=== PATIENT | male | born 1955 | race Caucasian/White ===

== ENCOUNTER → 2016-02-26 | Outpatient (CLI) | payer BC ==
--- NOTE | 2016-02-26 21:45 | EEG ---
DATE OF SERVICE: 02/26/2016 INDICATIONS FOR EXAMINATION: Transient ischemic attack. AGE: 60Y DESCRIPTION OF PROCEDURE: This EEG was performed using a 21 channel digital electroencephalograph following international 10-20 system. DESCRIPTION OF THE RECORDING: From the beginning of the tracing, with the patient's eyes closed, the background rhythm was mostly consisting of 9 Hz alpha frequency in the posterior occipital leads. No obvious asymmetry is seen. Occasional movement artifacts are noticed. Photic stimulation was performed with a good driving response seen. No pathological waves were elicited. Hyperventilation was not performed. The patient remains awake throughout the tracing. No epileptiform discharges were seen. His EKG lead showed an irregularly irregular rhythm with a normal rate. INTERPRETATION: This awake EEG can be considered within normal limits except his EKG lead showed an irregularly irregular rhythm with a normal rate. No epileptiform discharges were seen. The absence of epileptiform discharges does not rule out the diagnosis of epilepsy, therefore, clinical correlation is recommended. Thank you Dr. Lott for allowing me to participate in the care of your patient. If you have any questions, please feel free to contact me.
== END | disposition home or self-care (01) ==
LOC: NEUROMAIN 10:42
PROVIDERS: ATTEND Family Medicine
DX: G45.9 Transient cerebral ischemic attack, unspecified (principal)
CPT/HCPCS: 95816

== ENCOUNTER → 2016-02-29 | Outpatient (CLI) | payer BC ==
--- NOTE | 2016-02-29 10:16 | CT ---
EXAMINATION TYPE: CT chest w con DATE OF EXAM: 02/29/2016 10:06 AM COMPARISON: Previous study dated 12/04/2015 HISTORY: Follow up to lung nodule CT DLP: 443.5 mGycm Automated exposure control for dose reduction was used. CONTRAST: CT scan of the chest is performed with IV Contrast, patient injected with 100 ml mL of Omnipaque 300. FINDINGS: The patient is groundglass nodule in the right upper lobe has resolved. The lungs are now clear. There is no significant axillary, mediastinal or hilar adenopathy. There is no pleural or pericardial fluid. Within the abdomen, there is mild fatty infiltration of the liver. Visualized portions of the upper a bdomen are otherwise normal. There is evidence of fresh is disease within the dorsal spine. IMPRESSION: 1. Resolution of the patient ground glass nodule right upper lobe. 2. Mild fatty infiltration of the liver 3. DISH.
== END | disposition home or self-care (01) ==
LOC: RADCTMAIN 09:25
PROVIDERS: ATTEND Family Medicine
DX: R91.1 Solitary pulmonary nodule (principal)
CPT/HCPCS: 71260; Q9967

== ENCOUNTER → 2016-03-12 | Outpatient (CLI) | payer BC ==
[2016-03-12 17:07] LABS: Blood Urea Nitrogen 18 mg/dL (9-20); Non-African American GFR(MDRD) >60 (>60 ml/min/1.73 sqM)
--- NOTE | 2016-03-13 08:43 | MR ---
MRI of the brain with and without contrast HISTORY: Headaches. TECHNIQUE: T1-weighted sagittal, T2, FLAIR, and diffusion axial, postcontrast T1 axial and coronal vi ews of the brain are submitted. CONTRAST: 20 mL MultiHance FINDINGS: There is no evidence of acute ischemia. The ventricles, basal cisterns, and sulci overlying the co nvexities are consistent with the patient's age. There is no mass effect or enhancing mass. Changes of chronic sinusitis noted. No cerebellopontine angle mass. Intraorbital structures have a no rmal appearance. Craniocervical junction maintained. Sella turcica has a normal appearance there is a dural based calc ification along the anterior interhemispheric fissure. There is normal enhancement of the vasculature including the dural venous sinuses. WHITE MATTER: There are approximately 30 focal areas of abnormal signal within the white matter which are not cysti c. There are no callosal lesions. There are no lesions perpendicular to the ventricular system. IMPRESSION: 1. No acute intracranial process. 2. Chronic sinusitis. 3. Nonspecific white matter changes. Most likely etiology is remote microvascular ischemia. Correlate clinically.
== END | disposition home or self-care (01) ==
LOC: RADMRIMAIN 16:23
PROVIDERS: ATTEND Nurse Practitioner Family
DX: R90.82 White matter disease, unspecified (principal)
CPT/HCPCS: 82565; 84520; 70553; A9577

== ENCOUNTER 2018-11-17 08:40 | Day surgery (SDC) | payer BC ==
[2018-11-15 12:02] VITALS: BMI 31.3
[~2018-11-17 08:40] MED LIST: LACTATED RINGERS 1,000 ML IV SCH; LIDOCAINE 1% 20 ML VIAL (10MG/ML) FOR IV START INTRADERMA PRN
[2018-11-17 08:59] VITALS: RESP 16; TEMP 97.2
[2018-11-17] MEDS ORDERED: PROPOFOL 10 MG/ML 20 ML VIAL IV ONE (09:03)
--- NOTE | 2018-11-17 09:22 | P.PCN ---
Date of Procedure: 11/17/18 Procedure(s) Performed: BRIEF HISTORY: Patient is a 63-year-old white male scheduled for an elective colonoscopy as a part of screening for colorectal neoplasia. Last colonoscopy was 10 years ago. PROCEDURE PERFORMED: Colonoscopy with snare polypectomy. PREOPERATIVE DIAGNOSIS: Screening for colon cancer. IV sedation per Anesthesia. PROCEDURE: After informed consent was obtained, the patient, was brought into the endoscopy unit. IV sedation was administered by Anesthesia under continuous monitoring. Digital rectal examination was normal. Initially the Olympus CF-160 flexible video colonoscope was then inserted in the rectum, gradually advanced into the cecum without any difficulty. Careful examination was performed as the scope was gradually being withdrawn. Ileocecal valve and the appendiceal orifice were visualized and appeared normal. Prep was excellent. Mucosa of the cecum, ascending colon, transverse colon, descending colon, appeared normal. In the sigmoid: There was a 5 mm polyp that was removed by snare polypectomy. sigmoid colon, and rectum appeared normal. Retroflexion was performed in the rectum and no lesions were seen. The patient tolerated the procedure well. IMPRESSION: 5 mm; sigmoid colon polyp status post polypectomy Rest of the colon appeared normal RECOMMENDATIONS: Findings of this examination were discussed with the patient as well as a family. He was advised to follow with the biopsy results. If the biopsy shows an adenoma he can have a repeat colonoscopy in 5 years..
[2018-11-17 09:55] VITALS: BP 132/72; PULSE 66
== END 2018-11-17 09:55 | disposition home or self-care (01) ==
LOC: ORWHC2ENDO 08:40
PROVIDERS: ATTEND Internal Medicine Gastroenterology
DX: Z12.11 Encounter for screening for malignant neoplasm of colon (principal); D12.5 Benign neoplasm of sigmoid colon; I48.91 Unspecified atrial fibrillation; I10 Essential (primary) hypertension; E78.5 Hyperlipidemia, unspecified; G47.33 Obstructive sleep apnea (adult) (pediatric); Z99.89 Dependence on other enabling machines and devices; Z79.01 Long term (current) use of anticoagulants; Z79.899 Other long term (current) drug therapy
CPT/HCPCS: 88305; 45385; J2704

== ENCOUNTER 2019-02-28 09:51 | Inpatient (IN) | payer BC ==
[2019-02-28] MEDS ORDERED: MAGNESIUM SULFATE-D5W PMX 1 GM in DEXTROSE/WATER 1 100ML.BAG IVPB SCH (11:30)
[2019-02-28 12:44] LABS: African American GFR (CKD) >90 (>60 ml/min/1.73 sqM); Anion Gap 7 mmol/L; Blood Urea Nitrogen 14 mg/dL (9-20); Carbon Dioxide 29 mmol/L (22-30); Chloride 106 mmol/L (98-107); Glucose 97 mg/dL (74-99); Magnesium 2.3 mg/dL (1.6-2.3); Non-African American GFR(CKD) >90 (>60 ml/min/1.73 sqM); Potassium 3.4 mmol/L (3.5-5.1); Sodium 142 mmol/L (137-145)
[2019-02-28] MEDS: MAGNESIUM SULFATE-D5W PMX 1 GM in DEXTROSE/WATER 1 100ML.BAG IVPB SCH (14:22)
[2019-02-28] MEDS ORDERED: SPIRONOLACTONE 25 MG TAB PO SCH (14:30)
[2019-02-28] MEDS: MAGNESIUM OXIDE 400 MG TAB PO SCH (15:26)
[2019-02-28] MEDS: SPIRONOLACTONE 25 MG TAB PO SCH (15:26)
--- NOTE | 2019-02-28 16:29 | P.PN ---
Subjective This is Concepción Valdez PA-C dictating a progress note on this patient The patient was interviewed and examined by me as well as by Dr. Durbin Case discussed with Dr. Durbin and he agrees with the plan of care IMPRESSION / ASSESSMENT: Persistent atrial fibrillation with controlled ventricular response, status post PVI and linear ablation, failed flecainide History of sick sinus syndrome History of CAD, recent stress test showing no evidence of reversible ischemia Recent echocardiogram and stress test showing dilated LV and low normal LV systolic function Dyslipidemia Hypertension Normal TSH PLAN: Initiate treatment with dofetilide 250 g tonight at 6:00, follow-up EKG 3 hours later to reassess QT interval Start spironolactone 50 mg daily Start magnesium 400 mg daily Continue anticoagulation with eliquis 5 mg twice daily Continue amlodipine Continue lisinopril 40 mg daily Continue atorvastatin Monitor BMP and mag daily, goal is to maintain mag > 2 Monitor telemetry for PVCs and ventricular arrhythmias Monitor EKG and assess for QT prolongation HPI/interval history Patient is a 63-year-old male with a past medical history of persistent atrial fibrillation status post atrial fibrillation ablation, sick sinus syndrome, hy pertension, CAD and dyslipidemia presented for management of atrial fibrillation. A recent echocardiogram showed low normal LV systolic function with mildly dilated LV. His recent stress test again redemonstrated dilated LV, without reversible ischemia. Recent Holter monitor showed rate controlled atrial fibrillation. Patient denied any symptoms, denies fatigue, palpitations, shortness of breath or chest discomfort. In view of his declining LV function and dilated LV, treatment of his atrial fibrillation to avoid worsening cardiomyopathy was recommended. Patient was brought in for initiation of dofetilide. Patient seen and examined resting in bed. States he recently hurt his knee otherwise denies any complaints. No palpitations, dizziness, syncope. Endorses good energy level. Denies chest pain or shortness of breath. EXAMINATION Patient is afebrile, pulse 59, respirations 16, blood pressure 146/75, oxygen saturation 95% on room air Patient seen and examined resting in bed, in no acute distress Lungs clear to auscultation bilaterally, no rhonchi wheezing or crackles Heart is irregularly irregular, no audible murmurs No elevated JVD No lower extremity edema REVIEW OF LABS, ECG Labs reviewed, potassium 3.4, BUN 14, creatinine 0.78, magnesium 2.3, TSH 1.06 EKG today shows atrial fibrillation, absolute QT 420 ms Objective - Vital Signs Vital signs: Vital Signs Temp 97.9 F 02/28/19 12:29 Pulse 59 L 02/28/19 12:29 Resp 16 02/28/19 12:29 BP 146/75 02/28/19 12:29 Pulse Ox 95 02/28/19 12:29 Intake & Output 02/27/19 02/28/19 02/28/19 18:59 06:59 18:59 Intake Total 600 Balance 600 Weight 98.066 kg Intake: Oral 600 Other: # Voids 1 - Labs CBC & Chem 7: 02/28/19 11:30 Labs: Abnormal Lab Results - Last 24 Hours (Table) 02/28/19 Range/Units 11:30 Potassium 3.4 L (3.5-5.1) mmol/L
[2019-02-28] MEDS ORDERED: DOFETILIDE 250 MCG CAP PO ONE (18:00)
[2019-02-28] MEDS: APIXABAN 5 MG TAB PO SCH (20:37)
[2019-02-28] MEDS: ATORVASTATIN 10 MG TAB PO SCH (20:37)
[2019-03-01] MEDS ORDERED: DOFETILIDE 250 MCG CAP PO ONE (06:00)
[2019-03-01 06:07] LABS: African American GFR (CKD) >90 (>60 ml/min/1.73 sqM); Anion Gap 7 mmol/L; Blood Urea Nitrogen 15 mg/dL (9-20); Calcium 8.6 mg/dL (8.4-10.2); Carbon Dioxide 28 mmol/L (22-30); Chloride 106 mmol/L (98-107); Glucose 106 mg/dL (74-99); Magnesium 2.3 mg/dL (1.6-2.3); Non-African American GFR(CKD) >90 (>60 ml/min/1.73 sqM); Potassium 3.6 mmol/L (3.5-5.1); Sodium 141 mmol/L (137-145)
[2019-03-01] MEDS ORDERED: LIDOCAINE 1% 20 ML VIAL (10MG/ML) FOR IV START INTRADERMA PRN (07:55)
[2019-03-01] MEDS ORDERED: MORPHINE SULFATE 4 MG/ML SYRINGE IV PRN (07:55)
[2019-03-01] MEDS ORDERED: DEXAMETHASONE SOD PHOSPHATE 10 MG/ML 1 ML VIAL IV ONE ×2 (07:55→09:15)
[2019-03-01] MEDS: LISINOPRIL 20 MG TAB PO SCH (08:52)
[2019-03-01] MEDS: SPIRONOLACTONE 25 MG TAB PO SCH (08:52)
[2019-03-01] MEDS: amLODIPine 10 MG TAB PO SCH (08:53)
[2019-03-01] MEDS: APIXABAN 5 MG TAB PO SCH ×2 (08:53→19:41)
[2019-03-01] MEDS: MAGNESIUM OXIDE 400 MG TAB PO SCH (08:53)
[2019-03-01] MEDS ORDERED: AMLODIPINE BESYLATE PO SCH (09:00)
[2019-03-01] MEDS ORDERED: BENAZEPRIL PO SCH (09:00)
--- NOTE | 2019-03-01 17:23 | P.PN ---
Subjective This is Concepción Valdez PA-C dictating a progress note on this patient The patient was interviewed and examined by me as well as by Dr. Durbin Case discussed with Dr. Durbin and he agrees with the plan of care IMPRESSION / ASSESSMENT: Persistent atrial fibrillation with controlled ventricular response, status post PVI and linear ablation, failed flecainide, remains in atrial fibrillation as after 2 doses of dofetilide 250 g History of sick sinus syndrome History of CAD, recent stress test showing no evidence of reversible ischemia Recent echocardiogram and stress test showing dilated LV and low normal LV systolic function Dyslipidemia Hypertension blood pressure stable Normal TSH PLAN: Continue with dofetilide 250 g BID Continue spironolactone 50 mg daily Continue magnesium 400 mg daily Continue anticoagulation with eliquis 5 mg twice daily Continue amlodipine Continue lisinopril 40 mg daily Continue atorvastatin Monitor BMP and mag daily, goal is to maintain mag > 2 Monitor telemetry for PVCs and ventricular arrhythmias Monitor EKG and assess for QT prolongation Plan for cardioversion on if he does not convert on dofetilide HPI/interval history Patient is a 63-year-old male with a past medical history of persistent atrial fibrillation status post atrial fibrillation ablation, sick sinus syndrome, hypertension, CAD and dyslipidemia presented for management of atrial fibrillation. Yesterday we started him on dofetilide 250 g twice a day. He remained in atrial fibrillation with controlled ventricular response. No arrhythmias overnight. He did have a few 2 second pauses which were asymptomatic. Subsequent EKG today shows atrial fibrillation with absolute QT 460 ms. Patient seen and examined resting in bed. Denies any complaints. No dizziness, palpitations, headache, chest pain or shortness of breath. EXAMINATION Temperature 98.0F, pulse in the 60s, respirations 16, blood pressure in the 120s over 70s, oxygen saturation 95% on room air Patient seen and examined resting in bed, in no acute distress Lungs clear to auscultation bilaterally Heart is irregularly irregular, no audible murmurs No elevated JVD No lower extremity edema REVIEW OF LABS, ECG Potassium 3.6, BUN 15, creatinine 0.85, magnesium 2.3 Objective - Vital Signs Vital signs: Vital Signs Temp 98.0 F 03/01/19 04:00 Pulse 73 03/01/19 12:00 Resp 16 03/01/19 12:00 BP 130/89 03/01/19 12:00 Pulse Ox 96 03/01/19 12:00 Intake & Output 02/28/19 03/01/19 03/01/19 18:59 06:59 18:59 Intake Total 840 1080 900 Output Total 800 Balance 840 280 900 Weight 98.066 kg 95.5 kg Intake: Oral 840 1080 900 Output: Urine 800 Other: Voiding Method Toilet Toilet # Voids 3 2 - Labs CBC & Chem 7: 03/01/19 05:12 Labs: Abnormal Lab Results - Last 24 Hours (Table) 03/01/19 Range/Units 05:12 Glucose 106 H (74-99) mg/dL
[2019-03-01] MEDS ORDERED: DOFETILIDE 250 MCG CAP PO STA (17:56)
[2019-03-01] MEDS: ATORVASTATIN 10 MG TAB PO SCH (19:41)
[2019-03-01] MEDS: LACTATED RINGERS 1,000 ML IV SCH (22:15)
[2019-03-02] MEDS ORDERED: DOFETILIDE 250 MCG CAP PO ONE (06:00)
[2019-03-02 06:40] LABS: African American GFR (CKD) >90 (>60 ml/min/1.73 sqM); Anion Gap 5 mmol/L; Blood Urea Nitrogen 16 mg/dL (9-20); Calcium 8.5 mg/dL (8.4-10.2); Carbon Dioxide 30 mmol/L (22-30); Chloride 105 mmol/L (98-107); Glucose 132 mg/dL (74-99); Magnesium 2.4 mg/dL (1.6-2.3); Non-African American GFR(CKD) >90 (>60 ml/min/1.73 sqM); Potassium 4.2 mmol/L (3.5-5.1); Sodium 140 mmol/L (137-145)
[2019-03-02] MEDS ORDERED: DEXAMETHASONE SOD PHOSPHATE 10 MG/ML 1 ML VIAL IV ONE (08:00)
[2019-03-02] MEDS: LISINOPRIL 20 MG TAB PO SCH (09:04)
[2019-03-02] MEDS: MAGNESIUM OXIDE 400 MG TAB PO SCH (09:04)
[2019-03-02] MEDS: amLODIPine 10 MG TAB PO SCH (09:05)
[2019-03-02] MEDS: SPIRONOLACTONE 25 MG TAB PO SCH (09:05)
[2019-03-02] MEDS: APIXABAN 5 MG TAB PO SCH ×2 (09:05→20:43)
--- NOTE | 2019-03-02 13:03 | P.PN ---
Subjective Patient is doing well. He has no chest discomfort no dizziness lightheadedness no palpitations. He still remains in atrial fibrillation with minimal organization on his twelve-lead ECG despite dofetilide 250 g twice daily Heart rates are in the normal range Labs are reviewed sodium 140, potassium 4.2, BUN 16 creatinine 0.9 TSH 1.060 magnesium 2.4 On examination heart sounds are irregular with normal no murmurs or gallops no rub Breath sounds are clear no rhonchi no crackles Normal heart sounds line abdomen soft nontender No JVD No lower extremity edema Impression Mild cardio myopathy with LV dilation Persistent atrial fibrillation Normal stress test Intrinsically rate controlled atrial fibrillation Appropriately anticoagulated Currently on dofetilide Twelve-lead ECG shows absolute QT interval of less than 440 ms on dofetilide 250 g twice daily Plan Electrical cardioversion tomorrow Increase dofetilide 500 g Objective - Vital Signs Vital signs: Vital Signs Temp 97.6 F 03/02/19 08:00 Pulse 61 03/02/19 08:00 Resp 12 03/02/19 08:00 BP 105/72 03/02/19 08:00 Pulse Ox 96 03/02/19 08:00 Intake & Output 03/01/19 03/02/19 03/02/19 18:59 06:59 18:59 Intake Total 900 240 Balance 900 240 Weight 95.3 kg Intake: Oral 900 240 Other: Voiding Method Toilet Toilet # Voids 3 1 - Labs CBC & Chem 7: 03/02/19 05:47 Labs: Abnormal Lab Results - Last 24 Hours (Table) 03/02/19 Range/Units 05:47 Glucose 132 H (74-99) mg/dL Magnesium 2.4 H (1.6-2.3) mg/dL
[2019-03-02] MEDS: SODIUM CHLORIDE 0.9% 1,000 ML IV SCH (13:32)
[2019-03-02] MEDS: LACTATED RINGERS 1,000 ML IV SCH (16:36)
[2019-03-02] MEDS ORDERED: DOFETILIDE 500 MCG CAP PO ONE (18:00)
[2019-03-02] MEDS: ATORVASTATIN 10 MG TAB PO SCH (20:43)
[2019-03-03 03:27] VITALS: RESP 18
[2019-03-03] MEDS: APIXABAN 5 MG TAB PO SCH ×2 (05:58→20:00)
[2019-03-03] MEDS: SPIRONOLACTONE 25 MG TAB PO SCH (05:59)
[2019-03-03] MEDS: MAGNESIUM OXIDE 400 MG TAB PO SCH (05:59)
[2019-03-03] MEDS ORDERED: DOFETILIDE 500 MCG CAP PO ONE (06:00)
[2019-03-03] MEDS: LISINOPRIL 20 MG TAB PO SCH (06:00)
[2019-03-03] MEDS: amLODIPine 10 MG TAB PO SCH (06:00)
[2019-03-03] MEDS ORDERED: DOFETILIDE 250 MCG CAP PO ONE ×2 (06:00→18:00)
[2019-03-03 06:49] LABS: African American GFR (CKD) >90 (>60 ml/min/1.73 sqM); Anion Gap 8 mmol/L; Blood Urea Nitrogen 14 mg/dL (9-20); Calcium 8.5 mg/dL (8.4-10.2); Carbon Dioxide 24 mmol/L (22-30); Chloride 109 mmol/L (98-107); Glucose 98 mg/dL (74-99); Magnesium 2.5 mg/dL (1.6-2.3); Non-African American GFR(CKD) >90 (>60 ml/min/1.73 sqM); Potassium 4.2 mmol/L (3.5-5.1); Sodium 141 mmol/L (137-145)
[2019-03-03] MEDS ORDERED: IV FLUID CONTINUATION 1,000 ML IV ONE (10:09)
[2019-03-03] MEDS ORDERED: PROPOFOL 10 MG/ML 20 ML VIAL IV ONE (10:14)
[2019-03-03] MEDS ORDERED: LIDOCAINE 1% INJ 10MG/ML (20 ML MDV) ONE (10:14)
--- NOTE | 2019-03-03 12:55 | P.PCN ---
Preoperative Diagnosis: Diagnosis Persistent atrial fibrillation Cardio myopathy mild with a dilated LV Inpatient initiation of dofetilide Currently on 500 g twice daily Procedure Successful electrical cardioversion with a 360 J shock to sinus rhythm Follow-up 12-lead ECG shows sinus rhythm with a prolonged QT interval of 520 ms Plan Continue anticoagulation Reduce dofetilide to 250 g twice daily Sodium 141, potassium 4.2, BUN 14 and creatinine 0.8 TSH 1.06
[2019-03-03] MEDS: SODIUM CHLORIDE 0.9% 1,000 ML IV SCH (12:57)
[2019-03-03] MEDS: ATORVASTATIN 10 MG TAB PO SCH (20:00)
[2019-03-04] MEDS ORDERED: DOFETILIDE 250 MCG CAP PO ONE (06:00)
[2019-03-04 07:49] LABS: African American GFR (CKD) >90 (>60 ml/min/1.73 sqM); Anion Gap 6 mmol/L; Blood Urea Nitrogen 17 mg/dL (9-20); Carbon Dioxide 31 mmol/L (22-30); Chloride 105 mmol/L (98-107); Glucose 97 mg/dL (74-99); Magnesium 2.4 mg/dL (1.6-2.3); Non-African American GFR(CKD) 89 (>60 ml/min/1.73 sqM); Potassium 4.7 mmol/L (3.5-5.1); Sodium 142 mmol/L (137-145)
[2019-03-04] MEDS: LISINOPRIL 20 MG TAB PO SCH (08:14)
[2019-03-04] MEDS: MAGNESIUM OXIDE 400 MG TAB PO SCH (08:14)
[2019-03-04] MEDS: APIXABAN 5 MG TAB PO SCH (08:14)
[2019-03-04] MEDS: amLODIPine 10 MG TAB PO SCH (08:14)
[2019-03-04] MEDS: SPIRONOLACTONE 25 MG TAB PO SCH (08:14)
[2019-03-04] MEDS: SODIUM CHLORIDE 0.9% 1,000 ML IV SCH (12:10)
[2019-03-04 12:38] VITALS: BP 120/74; PULSE 61; TEMP 97
--- NOTE | 2019-03-04 13:20 | P.DS ---
Providers Date of admission: 02/28/19 09:51 Attending physician: Chris Durbin Primary care physician: [facility] Course: Patient is resting comfortably in bed. Last night he went into atrial fibrillation with a controlled ventricular response on dofetilide 250 g twice daily line his QT interval on dofetilide is about 480 ms. His baseline QT was 420 ms On 500 g twice daily his QT interval was about 520 ms therefore I reduced this dose Yesterday he underwent successful electrical cardioversion for atrial fibrillation but within 12 hours there was a recurrence On examination 97F pulse rate in the 60s respirations normal blood pressure 120/74 mmHg Breath sounds are clear no rhonchi no crackles Heart sounds are normal normal S1 normal S2 irregular no murmurs Abdomen soft nontender Extremities warm no edema Impression Persistent atrial fibrillation with controlled ventricular response Mildly dilated left ventricle with mild LV systolic dysfunction Hypertension Failed dofetilide 250 g twice daily QT prolongation on dofetilide 500 g twice daily Suggest Stop dofetilide Discharge home Continue all other cardiac medications and 90 granulation but add spironolactone continue lisinopril Continue ELIQUIS 5 mg twice daily Follow Dr. Durbin within 2 weeks I would recommend an EP study and ablation for atrial fibrillation Patient Condition at Discharge: Stable Plan - Discharge Summary Discharge Rx Participant: Yes New Discharge Prescriptions: No Action Apixaban [Eliquis] 5 mg PO BID Cholecalciferol [Vitamin D3 (25 Mcg = 1000 Iu)] 2,000 unit PO DAILY Ubidecarenone [Co Q-10] 200 mg PO DAILY amLODIPine BESYLATE/BENAZEPRIL [Lotrel 10-40 MG] 1 cap PO DAILY Atorvastatin [Lipitor] 10 mg PO HS Discharge Medication List Apixaban [Eliquis] 5 mg PO BID 12/03/15 [History] Cholecalciferol [Vitamin D3 (25 Mcg = 1000 Iu)] 2,000 unit PO DAILY 12/03/15 [History] Ubidecarenone [Co Q-10] 200 mg PO DAILY 12/03/15 [History] Atorvastatin [Lipitor] 10 mg PO HS 11/15/18 [History] amLODIPine BESYLATE/BENAZEPRIL [Lotrel 10-40 MG] 1 cap PO DAILY 11/15/18 [History] Follow up Appointment(s)/Referral(s): Chris Durbin MD [STAFF PHYSICIAN] - 02/10/20 9:15 am () Patient Instructions/Handouts: Heart Healthy Diet (DC), Cardioversion (DC)
== END 2019-03-04 14:55 | disposition home or self-care (01) | DRG 310 ==
LOC: 3SCARD 09:51
PROVIDERS: ADMIT Internal Medicine Clinical Cardiac Electrophysiology; ATTEND Internal Medicine Clinical Cardiac Electrophysiology
PROC: 5A2204Z Restoration of Cardiac Rhythm, Single (ICD-10-PCS; principal; 2019-03-03 10:00)
DX: I48.19 Other persistent atrial fibrillation (principal); I49.5 Sick sinus syndrome; E78.5 Hyperlipidemia, unspecified; G47.33 Obstructive sleep apnea (adult) (pediatric); I42.0 Dilated cardiomyopathy; I11.9 Hypertensive heart disease without heart failure; I25.10 Atherosclerotic heart disease of native coronary artery without angina pectoris; Z79.01 Long term (current) use of anticoagulants; Z79.899 Other long term (current) drug therapy; Z88.6 Allergy status to analgesic agent
CPT/HCPCS: 80048; 83735; 84443; 92960

== ENCOUNTER → 2019-06-29 | Outpatient (CLI) | payer BC ==
--- NOTE | 2019-06-29 15:59 | MR ---
EXAMINATION TYPE: MR knee RT wo con DATE OF EXAM: 06/29/2019 COMPARISON: Outside Right knee x-ray April 22, 2019. HISTORY: Knee Pain in Lateral/Posterior part of Right Knee, Twisted and heard a pop sound in Knee. TECHNIQUE: Multiplanar, multisequence images of the knee is performed without IV contrast. FINDINGS: MEDIAL MENISCUS: Some globular and linear signal posterior horn does not definitively extend to artic ular surface. Anterior horn unremarkable LATERAL MENISCUS: Anterior and posterior horns are intact without tear. CRUCIATE LIGAMENTS: The posterior cruciate ligament is intact and unremarkable. There is nonvisualiza tion of normal anterior cruciate ligament consistent with complete tear. COLLATERAL LIGAMENTS: The medial collateral ligament and lateral collateral ligament complex are inta ct and unremarkable. EXTENSOR MECHANISM: Visualized quadriceps and patellar tendons are intact. Increased fluid signal is soft tissue swelling superficial infrapatellar level with additional small amount of fluid deep to th e distal aspect of the patellar tendon axial image 6 for reference. EFFUSION: Fairly moderate-sized suprapatellar joint effusion. POPLITEAL CYST: Fairly moderate to large sized septated popliteal/ruiz cyst measuring 8.4 cm long ax is sagittal image 11. Some ill-defined fluid extends from this level medially. TRICOMPARTMENT SPACES: [id number] tricompartment joint space loss most prominent over the martinez lofemoral compartment with mild tricompartment spurring. CARTILAGE: Chondromalacia patella with thinning of articular cartilage along posterior patellar pole particularly inferiorly and medially for reference axial image 16. Additional involvement lateral sup erior aspect axial image 21 for reference. Some fissuring and cartilaginous loss medial tibial femora l compartment. BONE MARROW SIGNAL: No focal abnormal marrow signal is appreciated. OTHER: No additional significant abnormality is appreciated. IMPRESSION: 1. Complete ACL tear. 2. At least an intrasubstance tear posterior horn medial meniscus, no definitive full-thickness menis tamie tear. 3. Fairly moderate suprapatellar joint effusion. 4. Moderate to large sized multi septated leaking popliteal cyst. 5. Fairly moderate tricompartment degenerative changes greatest patellofemoral compartment as detaile d above. 6. Mild to moderate superficial infrapatellar bursitis.
== END | disposition home or self-care (01) ==
LOC: RADMRIMAIN 14:34
PROVIDERS: ATTEND Orthopaedic Surgery
DX: M17.11 Unilateral primary osteoarthritis, right knee (principal); M71.561 Other bursitis, not elsewhere classified, right knee; M71.21 Synovial cyst of popliteal space [Baker], right knee; S83.511A Sprain of anterior cruciate ligament of right knee, initial encounter; S83.241A Other tear of medial meniscus, current injury, right knee, initial encounter

== ENCOUNTER 2019-08-01 09:35 | Day surgery (SDC) | payer BC ==
[2019-07-28 11:03] VITALS: BMI 31.8
[~2019-08-01 09:35] MED LIST changes: +DEXAMETHASONE SOD PHOSPHATE 10 MG/ML 1 ML VIAL IV ONE; +HYDROmorphone 0.5 MG/0.5 ML SYRINGE IVP PRN; -LIDOCAINE 1% 20 ML VIAL (10MG/ML) FOR IV START INTRADERMA PRN; +MIDAZOLAM 2 MG/2 ML VIAL IV PRN; +ONDANSETRON 4 MG/2 ML VIAL IVP ONE; +SODIUM CHLORIDE 0.9% 1,000 ML IV SCH
[2019-08-01] MEDS ORDERED: SODIUM CHLORIDE 0.9% 1,000 ML IV ONE ×2 (10:12→17:50)
[2019-08-01 10:19] LABS: Basophils % (A) 1 %; Eosinophils # (A) 0.2 k/uL (0-0.7); Eosinophils % (A) 3 %; HGB 14.7 gm/dL (13.0-17.5); Lymphocytes # (A) 0.8 k/uL (1.0-4.8); Lymphocytes % (A) 15 %; MCHC 34.1 g/dL (31.0-37.0); MCV 96.7 fL (80.0-100.0); Mean Platelet Volume 7.1; Monocytes # (A) 0.4 k/uL (0-1.0); Monocytes % (A) 8 %; Neutrophils # (A) 3.8 k/uL (1.3-7.7); Neutrophils % (A) 72 %; Platelet Count 139 k/uL (150-450); RBC 4.45 m/uL (4.30-5.90); WBC 5.3 k/uL (3.8-10.6)
[2019-08-01 10:31] LABS: Calcium 8.9 mg/dL (8.4-10.2); Potassium 4.9 mmol/L (3.5-5.1)
[2019-08-01] MEDS ORDERED: MIDAZOLAM 2 MG/2 ML VIAL ONE (12:32)
[2019-08-01] MEDS ORDERED: ROCURONIUM BROMIDE 10 MG/ML 5 ML VIAL IV ONE (12:32)
[2019-08-01] MEDS ORDERED: NEOSTIGMINE 1 MG/ML 10 ML VIAL ONE (12:32)
[2019-08-01] MEDS ORDERED: PROTAMINE SULFATE 10 MG/ML 5 ML VIAL IV ONE (12:32)
[2019-08-01] MEDS ORDERED: fentaNYL (PF) 50 MCG/ML 2 ML AMP ONE (12:32)
[2019-08-01] MEDS ORDERED: PROPOFOL 10 MG/ML 20 ML VIAL IV ONE (12:32)
[2019-08-01] MEDS ORDERED: GLYCOPYRROLATE 0.2 MG/ML 2 ML VIAL ONE (12:32)
[2019-08-01] MEDS ORDERED: HEPARIN SODIUM,PORCINE 10,000 UNIT/ML 1 ML VIAL ONE (12:32)
[2019-08-01] MEDS ORDERED: SUCCINYLCHOLINE CHLORIDE 100 MG/5 ML SYR IV ONE (12:32)
[2019-08-01] MEDS ORDERED: WATER FOR INJECTION, STERILE 10 ML VIAL IV ONE (12:32)
[2019-08-01] MEDS ORDERED: ePHEDrine SULFATE/0.9% NACL/PF 50 MG/5 ML SYRINGE IV ONE (12:32)
[2019-08-01] MEDS ORDERED: HEPARIN SODIUM (1,000 UNIT/ML) 1,000 UNIT in SODIUM CHLORIDE 0.9% 1,000 ML IRRIGATION ONE (12:35)
[2019-08-01] MEDS ORDERED: HEPARIN SOD,PORK IN 0.45% NACL 25,000 UNIT in 0.45% NACL 1 250ML.BAG IV ONE ×2 (12:35)
[2019-08-01] MEDS ORDERED: LIDOCAINE 1% INJ 10MG/ML (20 ML MDV) SQ ONE (13:21)
--- NOTE | 2019-08-01 17:20 | P.PCN ---
Preoperative Diagnosis: This was a long procedure #1 stepwise 3-D electro anatomic mapping of the left atrium and right atrium and coronary sinus was performed. The pulmonary veins completely isolated at antral level The roof line made in the previous ablation used to complete block. This was a slightly anterior The anterior linear ablation along the left atrium had an anatomic In the mid LAD The mitral isthmus was narrow. It has not been ablated in the prior ablations The left atrial appendage showed very organized rapid atrial activity The SVC area along the septum showed slightly slower but very rapid atrial activity with fractionation Outside the coronary sinus os, anteriorly between the coronary sinus os and the IVC, organized atrial activity was noted which is rapid and associated with fractionation Stepwise radiofrequency ablation was performed. RF ablation along the anterior wall, in the In the anterior mitral line Ablation of the mitral isthmus Focal ablation on the left atrial appendage is H in juxtaposition to the left- sided pulmonary veins was ablated RF ablation along the anterior coronary sinus RF ablation along the anterior aspect in the junction between the os of the coronary sinus in the IVC RF ablation at just below the SVC along with septal aspect
[2019-08-01] MEDS ORDERED: ACETAMINOPHEN IV (For NPO) 1,000 MG in EMPTY BAG 1 BAG IVPB ONE (18:00)
[2019-08-01] MEDS ORDERED: ATORVASTATIN 10 MG TAB PO SCH (21:00)
[2019-08-01] MEDS ORDERED: ONDANSETRON 4 MG/2 ML VIAL IVP STA (21:14)
[2019-08-01] MEDS: APIXABAN 5 MG TAB PO SCH (22:13)
[2019-08-01] MEDS: carvediloL 3.125 MG TAB PO SCH (22:13)
[2019-08-01] MEDS: ACETAMINOPHEN TAB 325 MG TAB PO PRN (22:13)
--- NOTE | 2019-08-02 03:55 | CE ---
CARDIAC ELECTROPHYSIOLOGY REPORT Mr. Martin Gutierrez is a 63-year-old male patient with persistent atrial fibrillation, rate controlled with cardiomyopathy. He was started on cardiomyopathy medications once again and was brought in for an atrial fibrillation ablation. He has had an atrial fibrillation ablation with pulmonary vein isolation as well as linear ablation left atrium in the past. Patient was brought to the EP lab in a fasting state. Written informed consent was obtained prior to the procedure. The procedure was performed under general anesthesia. Venous sheaths were placed in the right and left femoral veins via these diagnostic and ablation mapping catheters were placed. Left and right transseptal catheterization was performed. The RA pressure was 14/7/10 mmHg, LA pressure 21/6/14 mmHg. The 3D electroanatomic mapping was performed using a [employer] catheter. The pulmonary veins identified and mapped and were completely isolated at the antral level. The left atrial body was mapped. The roof line had been made and somewhat anteriorly along the roof, but this seemed to be a complete anatomic line without any anatomic gaps. The anterior LA wall line had a gap in the lower midportion closer to the mitral anulus and radiofrequency ablation was applied. This line was completed. There was no impact on the atrial cycle length. The ridge between the left-sided pulmonary veins and the left atrial appendage was mapped carefully and the mitral anulus was identified. This was a very short mitral anulus. This had not been ablated. RF ablation was performed along the mitral anulus. A complete anatomic line was made. There was no change in the atrial cycle length and no evidence for organization of atrial fibrillation. Mapping was then performed in the left atrial appendage and very rapid signals were noted in the left atrial appendage. Focal RF ablation was applied within the base of the atrial appendage in juxtaposition of the left-sided pulmonary veins. The atrial fibrillation did not change. RF ablation was applied at the roof at the base of the left atrial appendage in fractionated areas. No change noted in the atrial cycle length. The posterior wall had very fine atrial fibrillation, but the roof line was completely intact. The catheter was placed in the right atrium and 3D electroanatomic mapping was performed. Fractionated rapid signals were noted at the base of the SVC along with septal aspect. RF ablation was applied here. While the local signals disappeared, the atrial cycle length did not change. There were no organization. The coronary sinus was mapped and the 3D electroanatomic map was performed. RF ablation was applied along the fractionated signals along the left atrium CS junction, anteriorly in the coronary sinus wall. There was no change in the atrial sinus cycle length. Mapping was performed from the coronary sinus os and very fractionated rapid signals noted outside the coronary sinus os anteriorly and RF ablation applied. Yet, did not change in the atrial cycle length. At this point, electrical cardioversion was performed but the patient would not convert to sinus rhythm. He did convert to a rapid atrial tachycardia with heart rates in the 70s. The atrial tachycardia cycle length was about 310 milliseconds with upright P- waves in lead V1, but not consistent with atrial flutter. The patient tolerated the procedure well without any acute complications. RESULT: Detailed mapping of the left and right atrium as well as coronary sinus with RF ablation as described above in multiple sites. The patient could not be converted to sinus rhythm. PLAN: No further ablations for atrial fibrillation. Continue anticoagulation lifelong. Continue cardiomyopathy medications. Please note that the intracardiac echo catheter was also placed. Transseptal catheterization was performed with intracardiac echo guidance. Anterior atrial septum was identified. A 3D anatomic mapping of the left atrium was performed. The pulmonary veins were identified. LV function was noted and the LV function had normalized on his current cardiomyopathy medication. MMODL / IJN: [id number] /
[2019-08-02 07:34] VITALS: BP 117/78; PULSE 70; RESP 16; TEMP 98.2
[2019-08-02] MEDS: APIXABAN 5 MG TAB PO SCH (08:29)
[2019-08-02] MEDS: carvediloL 3.125 MG TAB PO SCH (08:29)
[2019-08-02] MEDS: ACETAMINOPHEN TAB 325 MG TAB PO PRN (08:32)
--- NOTE | 2019-08-02 08:35 | DS ---
DISCHARGE SUMMARY Martin Gutierrez is a 63-year-old male patient of Dr. Lott and myself who has persistent atrial fibrillation with mild cardiomyopathy. He is brought in for an atrial fib ablation. In the past, he has had atrial fib ablation and pulmonary vein isolation and ablation in the left atrial roof anteriorly as well as the anterior wall of the LAD. He was brought in for an EP study. A 3D mapping was performed. The pulmonary veins were completely isolated, the roof line was complete. There was no gaps in the roof line. The anterior mitral line had a gap in the midportion and this was ablated. Thereafter, extrapulmonary foci of atrial fibrillation was sought sequentially around the fossa ovalis around the left atrial appendage and within the left atrial appendage which had a rapid tachycardia in the groove between the left atrial appendage and the superior pulmonary veins. Linear ablation of the very short mitral isthmus. Ablation within the mid to distal coronary sinus, ablation outside the coronary sinus os somewhat inferior to it in the fractionated portions and at the base of the SVC along the septal aspect away from the phrenic nerve. Despite that, there was no change in the character of atrial fibrillation and he underwent electrical cardioversion. The electrical cardioversion converted into atrial flutter, not a sinus rhythm. However, his heart rates were a lot better in atrial flutter and therefore he was left there. This gentleman has slow heart rates, but in this flutter like rhythm, his heart rates are in the 70s to 80s and I would like to keep them there. Most importantly, his intracardiac echo showed that with medical treatment over the last few months, his LV function has actually returned to normal. His groins have healed well. There is no hematoma. No swelling. He was nauseous through the night. Now he feels a lot better and eating breakfast. He is sitting up comfortably in bed. His blood pressure is 111/73 mmHg. Pulse rate in the 70s to 90 beats per minute. Afebrile. No JVD. Breath sounds are clear. No rhonchi, no crackles. Heart sounds are irregular. Abdomen is soft. Extremities are warm. IMPRESSION: 1. Persistent atrial fibrillation and cardiomyopathy. 2. Cardiomyopathy has improved. 3. Extrapulmonary sources of atrial fibrillation were sought and ablated. 4. However, he remains in an organized atrial rhythm which is flutter like. 5. He has underlying sick sinus syndrome. PLAN: Continue Eliquis. Continue carvedilol 3.125 mg twice daily. Continue cardiomyopathy medications including antonino inhibitors/ARB and spironolactone. Continue statins. Discharge home today after lunch and follow up in the office in 1 to 2 weeks. OTILIA / JUDY: [id number] /
--- NOTE | 2019-08-02 08:35 | LTR ---
DATE OF SERVICE: 08/02/2019 Dear Rafat: I had the pleasure of seeing Martin Gutierrez in electrophysiology followup. As you know, Mr. Gutierrez has a slow atrial fibrillation with underlying sick sinus syndrome, who has failed flecainide and has been intolerant of dofetilide. He has undergone successful isolation of the pulmonary veins as well as linear ablation within the left atrium but despite that, his atrial fibrillation continued. Yesterday I brought him back for an atrial fib ablation in view of his developing cardiomyopathy. Intracardiac echo showed that his LV function now has improved on medical treatment. I mapped his pulmonary veins. These had been ablated in 2016 and looked very good. I mapped the left atrium and the linear ablation that had performed in 2016 also looked very good. Thereafter, I ablated the left atrium in a stepwise manner in multiple sites including the fossa ovalis, the base of the left atrial appendage, within the left atrial appendage, mitral isthmus, mid distal coronary sinus, outside the os of the coronary sinus inferiorly and at the base of the SVC on the septal aspect away from the phrenic nerve. Despite that, his atrial fibrillation character has not changed. It is very likely that he has epicardial sources of atrial fibrillation, probably a vein of Irvin given the electrograms in the left atrial appendage, but his coronary sinus becomes quite diminutive going distally. He is now in an organized atrial rhythm with improved heart rates between 70s and 90 beats per minute and I have kept him there. I have asked him to continue carvedilol twice a day and his cardiomyopathy medications and I have also instructed him to continue Eliquis lifelong. As long as his LV function remains normal, I would continue with his current treatment without any changes. Thank you for entrusting me in the care of your patient. Warm regards, Sincerely, [email or web address] / IJN: [id number] /
[2019-08-02] MEDS ORDERED: SPIRONOLACTONE 25 MG TAB PO SCH (09:00)
[2019-08-02] MEDS ORDERED: amLODIPine 10 MG TAB PO SCH (09:00)
[2019-08-02] MEDS ORDERED: lisinopriL 20 MG TAB PO SCH (09:00)
[2019-08-02] MEDS ORDERED: ESCITALOPRAM 10 MG TAB PO SCH (09:00)
== END 2019-08-02 13:01 | disposition home or self-care (01) ==
LOC: CATHEP 09:35 → 1SOBS 16:39 → CATHEP 08-02 13:01
PROVIDERS: ATTEND Internal Medicine Clinical Cardiac Electrophysiology
DX: I48.19 Other persistent atrial fibrillation (principal); I42.8 Other cardiomyopathies; I10 Essential (primary) hypertension; E78.49 Other hyperlipidemia; I49.5 Sick sinus syndrome; G47.33 Obstructive sleep apnea (adult) (pediatric); E78.5 Hyperlipidemia, unspecified; B35.3 Tinea pedis; Z99.89 Dependence on other enabling machines and devices; I51.7 Cardiomegaly; Z79.01 Long term (current) use of anticoagulants; Z79.899 Other long term (current) drug therapy; Z88.6 Allergy status to analgesic agent
CPT/HCPCS: 93005; 85347; 92960; 93613; 93656; 80048; 85025; C1769 ×4; C1894; C1730; C1731; C1759; C1893; C1732; J2405; J2001; J1644 ×2

== ENCOUNTER → 2019-08-31 | Outpatient (CLI) | payer BC ==
--- NOTE | 2019-08-31 12:15 | MR ---
EXAMINATION TYPE: MR lumbar spine wo con DATE OF EXAM: 08/31/2019 COMPARISON: None HISTORY: LBP, BLE radiculopathy x 1 year TECHNIQUE: Multiplanar, multisequence images of the lumbar spine were acquired. Spinal alignment is normal. Vertebral body heights are preserved. Vertebral bone marrow is normal in signal. Multilevel degenerative disc disease, as described by level below. Disc desiccation seen from L2 thro ugh S1. Lower thoracic cord is normal in signal. Conus terminates normally at L1-2. Cauda equina nerv e roots are normal in course and caliber. Paraspinal soft tissues are unremarkable. Visualized upper sacroiliac joints appear intact. T12-L1: No posterior disc herniation, protrusion, or bulging. No canal stenosis. Foramina are patent bilaterally. L1-L2: No posterior disc herniation, protrusion, or bulging. No canal stenosis. Foramina are patent b ilaterally. L2-L3: Mild disc herniation. There is posterior thecal sac indentation by facet arthropathy. No canal stenosis. Foramina are patent bilaterally. L3-L4: Mild disc herniation. There is posterior thecal sac indentation by facet arthropathy. Mild can al stenosis. Foramina are moderately narrowed on the right and severely narrowed on the left. L4-L5: Mild disc herniation. Facet arthropathy and ligamentum flavum hypertrophy indent the posterior thecal sac. Severe canal stenosis. Foramina are moderately narrowed on the right and mildly narrowed on the left. L5-S1: Mild disc herniation and moderate disc space narrowing. Facet arthropathy and ligamentum flavu m hypertrophy. There is effacement of the thecal sac. No canal stenosis. Foramina are moderately narr owed on the right and severely narrowed on the left. IMPRESSION: Multilevel degenerative disc disease and facet arthropathy contribute to varying degrees of canal bianka nosis and neural foramina narrowing as above. Severe canal stenosis at L4-5.
== END | disposition home or self-care (01) ==
LOC: RADMRIMAIN 09:32
PROVIDERS: ATTEND Psychiatry & Neurology Neurology
DX: M48.062 Spinal stenosis, lumbar region with neurogenic claudication (principal); M51.36 Other intervertebral disc degeneration, lumbar region; M47.816 Spondylosis without myelopathy or radiculopathy, lumbar region; M47.817 Spondylosis without myelopathy or radiculopathy, lumbosacral region
CPT/HCPCS: 72148

== ENCOUNTER → 2020-06-15 | Outpatient (CLI) | payer BC ==
[2020-06-15 13:24] LABS: Basophils % (A) 1 %; Eosinophils # (A) 0.2 k/uL (0-0.7); Eosinophils % (A) 3 %; HCT 46.6 % (39.0-53.0); HGB 15.7 gm/dL (13.0-17.5); Lymphocytes # (A) 0.9 k/uL (1.0-4.8); Lymphocytes % (A) 16 %; MCH 31.4 pg (25.0-35.0); MCHC 33.7 g/dL (31.0-37.0); Mean Platelet Volume 7.3; Monocytes # (A) 0.4 k/uL (0-1.0); Monocytes % (A) 8 %; Neutrophils # (A) 3.9 k/uL (1.3-7.7); Neutrophils % (A) 71 %; Platelet Count 157 k/uL (150-450); RDW 12.8 % (11.5-15.5); WBC 5.5 k/uL (3.8-10.6)
[2020-06-15 13:28] LABS: Appearance,Urine Clear (Clear); Bilirubin,Urine Negative (Negative); Blood,Urine Negative (Negative); Color,Urine Yellow; Glucose,Urine (UA) Negative (Negative); Ketones,Urine Negative (Negative); Leukocyte Esterase,Urine Negative (Negative); Nitrite,Urine Negative (Negative); PH, Urine 6.5 (5.0-8.0); Protein,Urine Negative (Negative); Specific Gravity,Urine 1.017 (1.001-1.035); Urobilinogen,Urine <2.0 mg/dL (<2.0)
[2020-06-15 13:44] LABS: African American GFR (CKD) >90 (>60 ml/min/1.73 sqM); Anion Gap 8 mmol/L; Blood Urea Nitrogen 18 mg/dL (9-20); Carbon Dioxide 28 mmol/L (22-30); Chloride 105 mmol/L (98-107); Glucose 103 mg/dL (74-99); Non-African American GFR(CKD) 86 (>60 ml/min/1.73 sqM); Partial Thromboplastin Time 26.9 sec (22.0-30.0); Prothrombin Time 10.4 sec (9.0-12.0); Sodium 141 mmol/L (137-145)
--- NOTE | 2020-06-15 14:33 | XR ---
EXAMINATION TYPE: XR chest 2V DATE OF EXAM: 06/15/2020 COMPARISON: NONE HISTORY: Preop. Atrial fibrillation. TECHNIQUE: 2 views FINDINGS: Heart is normal. Lungs are clear of infiltrate. There is no heart failure. There are no hil ar masses. Bony thorax is intact. There is minor spurring in the thoracic spine. IMPRESSION: No active cardiopulmonary disease. Normal heart.
== END | disposition home or self-care (01) ==
LOC: LABPAT 11:38
PROVIDERS: ATTEND Orthopaedic Surgery Orthopaedic Surgery of the Spine
DX: Z01.812 Encounter for preprocedural laboratory examination (principal); M48.061 Spinal stenosis, lumbar region without neurogenic claudication
CPT/HCPCS: 36415; 71046; 80048; 81003; 85025; 85610; 85730; 87070

== ENCOUNTER 2020-06-20 06:22 | Inpatient (IN) | payer BC ==
[2020-06-18 11:45] VITALS: BMI 33.4
[~2020-06-20 06:22] MED LIST changes: -DEXAMETHASONE SOD PHOSPHATE 10 MG/ML 1 ML VIAL IV ONE; +DEXAMETHASONE SOD PHOSPHATE 4 MG/ML 1 ML VIAL IV ONE; -HYDROmorphone 0.5 MG/0.5 ML SYRINGE IVP PRN; -LACTATED RINGERS 1,000 ML IV SCH; +LIDOCAINE 1% (10MG/ML) FOR IV START INTRADERMA PRN; -SODIUM CHLORIDE 0.9% 1,000 ML IV SCH; +ceFAZolin 1,000 MG in SODIUM CHLORIDE 0.9% IRRIGATIO 1,000 ML IRRIGATION PRN
[2020-06-20] MEDS: LACTATED RINGERS 1,000 ML IV SCH (07:24)
[2020-06-20] MEDS ORDERED: GLYCOPYRROLATE 0.2 MG/ML 2 ML VIAL ONE (07:27)
[2020-06-20] MEDS ORDERED: SODIUM CHLORIDE 0.9% IRRIG 1,000 ML BTL IRRIGATION ONE (07:27)
[2020-06-20] MEDS ORDERED: fentaNYL (PF) 50 MCG/ML 2 ML AMP ONE (07:27)
[2020-06-20] MEDS ORDERED: MIDAZOLAM 2 MG/2 ML VIAL ONE (07:27)
[2020-06-20] MEDS ORDERED: HEPARIN SODIUM,PORCINE 10,000 UNIT/ML 1 ML VIAL ONE (07:27)
[2020-06-20] MEDS ORDERED: LIDOCAINE 1% INJ 10MG/ML (20 ML MDV) ONE (07:27)
[2020-06-20] MEDS ORDERED: NEOSTIGMINE 1 MG/ML 10 ML VIAL ONE (07:27)
[2020-06-20] MEDS ORDERED: PHENYLEPHRINE-0.9% NACL SYG 1,000 MCG/10 ML SYRINGE ONE (07:27)
[2020-06-20] MEDS ORDERED: PROPOFOL 10 MG/ML 20 ML VIAL IV ONE (07:27)
[2020-06-20] MEDS ORDERED: WATER FOR INJECTION, STERILE 10 ML VIAL IV ONE (07:27)
[2020-06-20] MEDS ORDERED: ROCURONIUM 10 MG/ML (5 ML VIAL) IV ONE (07:27)
[2020-06-20] MEDS ORDERED: ePHEDrine SULFATE/0.9% NACL/PF 50 MG/5 ML SYRINGE IV ONE (07:27)
[2020-06-20] MEDS ORDERED: SUCCINYLCHOLINE CHLORIDE 100 MG/5 ML SYR IV ONE (07:27)
[2020-06-20] MEDS ORDERED: LIDOCAINE 1%-EPI 1:100,000 20 ML VIAL SQ ONE (08:05)
[2020-06-20] MEDS ORDERED: BUPIVACAINE (PF) 0.25% 30 ML VIAL SQ ONE (08:05)
[2020-06-20] MEDS ORDERED: GELATIN SPONGE,ABSORB (LARGE) 1 EACH SPONGE TOPICAL ONE (08:05)
[2020-06-20] MEDS ORDERED: THROMBIN (BOVINE) 5,000 UNIT VIAL TOPICAL ONE (08:05)
[2020-06-20] MEDS ORDERED: LACTATED RINGERS 1,000 ML IV ONE (08:30)
[2020-06-20] MEDS ORDERED: HYDROcodone/APAP 5-325MG 1 EACH TAB PO PRN (12:05)
[2020-06-20] MEDS ORDERED: HYDROmorphone 1 MG/ML 1 ML SYRINGE IVP PRN (12:05)
[2020-06-20] MEDS ORDERED: MAGNESIUM HYDROXIDE 2,400 MG/10 ML CUP PO PRN (12:05)
[2020-06-20] MEDS ORDERED: BENZOCAINE/MENTHOL LOZENG 1 EACH LOZENGE MUCOUS MEM PRN (12:05)
[2020-06-20] MEDS ORDERED: HYDROmorphone 0.5 MG/0.5 ML SYRINGE IVP PRN (12:05)
--- NOTE | 2020-06-20 12:12 | P.OP ---
Date of Procedure: 06/20/20 Preoperative Diagnosis: Severe spinal stenosis L4 5 L5-S1, neurogenic claudication, lower extremity radiculopathy, facet arthrosis, degenerative disc disease, low back pain, Postoperative Diagnosis: Same Anesthesia: GETA Pathology: none sent Condition: stable Disposition: PACU Description of Procedure: DESCRIPTION OF PROCEDURE(S): BRIEF OPERATIVE NOTE Preoperative Diagnosis: Severe spinal stenosis L4 5 L5-S1, neurogenic claudication, lower extremity radiculopathy, facet arthrosis, degenerative disc disease, low back pain, Postoperative Diagnosis: Same Procedure: Laminectomy and decompression L4 5 L5-S1 Computer CT navigation aided Minimally invasive Posterior lateral decompression and facet fusion L4 5 L5-S1 Minimally invasive Transforaminal lumbar interbody fusion for a 360 fusion L4 5 L5-S1 Discectomy for decompression L4 5 L5-S1 Placement of interbody graft L4 5 L5-S1 Use of computer navigation for fusion Local autogenous bone grafting Aspiration of bone marrow from the vertebral body pedicle of L4 on the right Use of bone graft extenders Surgeon: Dr. Crespo Farmworker Rice: Alejo BARBOZA who is present throughout the entire the case persistence during positioning, dissection, exposure, visualization, and all crucial elements of the case as well as closure. Anesthesia: General anesthesia per Dr. Chino Estimated blood loss: Approximately 300 mL Complications: None apparent Components implanted: K2M minimally invasive [place] pedicle screw system withscrews measuring 6.5 mm in diameter to rods one [place] interbody cage with 10 mL of osteo amp bio4 bone graft substitute and 30 mL of the BX bone fibers to supplement the local autogenous bone graft and bone marrow aspirate Disposition: To recovery room in good stable condition. OPERATIVE INDICATIONS The patient has had severe issues at their lower extremity in her lower back over the past several years with significant worsening over the past several months. Over the past few months the patient had worsening pain at their back and their lower extremities. The patient is having severe radicular symptoms at their lower extremity with weakness. The patient is having significant pain in their back. They are unable to obtain any comfort. She was found to have severe spinal stenosis L4 5 and L5-S1 with severe disc degeneration and facet arthrosis which created well with his low back and lower extremity symptoms. We did aggressive conservative treatment with medications therapy and interventional pain management however thery were not having any relief. The patient has been through conservative treatment. We discussed various treatment options including surgery, and the patient wishes to proceed with surgery We discussed the risk, patient's alternatives and benefits of surgery including but not limited to, risk of bleeding risk of infection, risk of need for further surgery, risk of decreased, loss of motion, muscle function, malunion nonunion, hardware failure, nerve damage, paralysis, heart attack, blindness and . They understood issues with the current pandemic and the possibility of exposure. OPERATIVE SUMMARY After discussing all the risks, patient alternatives and benefits at length, the patient elected to proceed with surgical intervention, signed informed consent, and presented for their procedure. The patient was seen and examined in the preoperative holding area and the surgical site was marked. The patient was given antibiotics and brought to the operating room. The patient was sedated and intubated by anesthesia in standard fashion. The patient was positioned on to the operating room table in a prone position on the appropriate frame which was well-padded and well molded. We were careful to pad any bony prominences and pressure points. We were careful to maintain the patient's cervical spine and good neutral alignment and position throughout. The patient was prepped and draped in a normal standard fashion. An appropriate timeout and keystone protocol performed. We were able to proceed with the surgery. The local wound area was infiltrated with local anesthetic at L4 and 5 and S1 bilaterally. Over the right iliac crest I was able to make small stab incisions and establish a guidepin screw fixation to the iliac crest 2. I was able place the computer referencing device over the guidepins to establish an appropriate reference point for the Ziem CT navigation. We then were able to place patient in an appropriate drape and do a navigation spin for visualization and 3-D reconstruction of the lumbar spine. I was able utilize C-arm guidance and navigation to establish appropriate position over the pedicles bilaterally at the appropriate levels . With the appropriate levels confirmed was able to make small incisions over the appropriate pedicle sites bilaterally. Utilizing the computer navigation device I was able to establish bony landmarks at the right iliac crest for a bony reference point for the navigation device. I was able to establish a Jamshidi needle over the lateral aspect of the pedicle and advanced the trocar into the pedicle being careful not to breech superiorly inferiorly medially or laterally using computer navigation device. Position was confirmed regularly with AP and lateral images on C-arm and with the computer navigation device at the appropriate levels bilaterally. I was able to establish the trocar into the pedicle appropriately into the posterior aspect of the vertebral body bilaterally at the appropriate levels at L4 5 and S1. This was done at each of the pedicle positions and each of the vertebrae. At the superior vertebrae of L4 on the right I was able to take approximately 25 mL of bone aspiration for use later in the case to supplement the allograft and autograft bone. I was able place the guidewire into the trocar and into the vertebral body appropriately under C-arm guidance. Dissection was taken down over the wire to the appropriate starting position for the screw placed. The appropriate length screw was chosen, threaded over the guidewire and screwed appropriately into the pedicle and vertebral body under C-arm guidance in excellent alignment and position with good bony purchase. This is done at each of the screw sites at the appropriate levels at L4-L5 and S1 bilaterally. With the screws intact I extended the incision to connect the screw hole sites on the most symptomatic side on the left. I dissected down to establish access over the pars and lamina to the base of the spinous process. I was able to expose the facet joint. The capsule the facet was taken down and showed some facet arthrosis at the joint. I was able to use a combination of curettes and Kerrison rongeurs and a high-speed drill to take down the facet joint and do a facetectomy. I was able get excellent foraminal decompression and central decompression with undermining across midline to perform a laminectomy centrally and contralaterally. Note was made of severe central and bilateral foraminal stenosis at L4 5 which was remedied with the decompression. There is also significant central and foraminal decompression L5-S1 which was also able to be resolved with decompression. As able get good central decompression. The ligamentum flavum was taken down to further decompress centrally and at bilateral neural foramen. I was able to expose the disc space and visualize the traversing nerve root. Note was made of some disc protrusion and disc herniation that was abutting the traversing nerve root at the level causing further compression of the nerve root. I was able to establish a annulotomy at the appropriate level starting at L4 5 and then moving L5-S1 protecting soft tissue and neural structures. Note was made of some disc desiccation at the disc. I performed a complete discectomy with accommodation of curettes and rasps and scrapers. I was able get good endplate preparation at the disc space. I sized for the appropriate size interbody spacer protecting the soft tissue and neural structures. The wound was copiously irrigated and suctioned dry. There is no evidence of any dural tear or leak. I was able to pack the disc space with local autogenous bone graft as well as a small amount of bone graft which was also placed into the interbody cage itself. Protecting the soft tissue structures and neural structures I was able place the interbody cage in good alignment and good position with good fit and fill at the interbody space. Position was confirmed with C-arm guidance. Good hemostasis maintained. There is no evidence of any dural tear or leak. The wound was irrigated and suctioned dry. With the hardware intact, intraoperative C-arm imaging was again taken which showed good alignment and position of the hardware at the appropriate levels. We were then able to measure, contour and place the rods and appropriate hardware bilaterally. I was able to place capcrews, tighten them down, and torque them with the torque screwdriver appropriately. With this intact I was able to place the local autogenous bone graft with additional bone graft enhancer as necessary into the posterior lateral gutters over the decorticated transverse processes and facet joints on the contralateral side. The remainder of the bone graft was placed over the facet joint on the contralateral side after taking down the facet joint capsule. With the bone graft intact, a stable construct, and good decompression at the appropriate levels, we were able to proceed with closure. Good hemostasis was maintained. There is no evidence of dural tear or leak. The fascia was closed for a watertight closure. he subcuticular tissue was closed with absorbable suture. The wound was cleaned and dried and dressed with the appropriate dressing. The drapes were broken down. The patient was gently rolled back onto their hospital bed being careful to maintain their cervical spine and good neutral alignment and position. They were woken up by anesthesia, extubated, and brought to the recovery room in good stable condition. The patient will be admitted to the hospital for appropriate postoperative care, medical management and monitoring. We will continue to follow them closely about the postoperative course.
[2020-06-20] MEDS: HYDROmorphone 0.5 MG/0.5 ML SYRINGE IVP PRN ×4 (12:38→13:02)
[2020-06-20] MEDS: HYDROcodone/APAP 5-325MG 1 EACH TAB PO PRN ×2 (14:43→20:47)
--- NOTE | 2020-06-20 16:08 | XR ---
EXAM TYPE: LUMBAR SPINE X RAY SERIES COMPARISON: NONE HISTORY: Postsurgical change TECHNIQUE: 2 views are submitted. FINDINGS: Limited resolution images are submitted intraoperatively. There is postsurgical change involving the lower lumbosacral spine. Alignment near-anatomic. IMPRESSION: 1. Postoperative change.
--- NOTE | 2020-06-20 16:08 | FL ---
EXAMINATION TYPE: FL guidance operating room DATE OF EXAM: 06/20/2020 HISTORY: Fluoroscopy time 21 seconds of fluoroscopy provided. IMPRESSION: 1. Fluoroscopy time.
[2020-06-20] MEDS: SODIUM CHLORIDE 0.9% 1,000 ML IV SCH (17:43)
[2020-06-20] MEDS: ONDANSETRON 4 MG/2 ML VIAL IVP PRN (18:47)
[2020-06-20] MEDS: ATORVASTATIN 20 MG TAB PO SCH (20:44)
[2020-06-20] MEDS ORDERED: NON FORMULARY DRUG (Ubidecarenone [Co Q-10] 100 MG Capsule) PO SCH (21:00)
[2020-06-21] MEDS: SODIUM CHLORIDE 0.9% 1,000 ML IV SCH ×2 (02:01→15:57)
[2020-06-21] MEDS: LACTATED RINGERS 1,000 ML IV SCH (02:02)
[2020-06-21] MEDS: HYDROcodone/APAP 5-325MG 1 EACH TAB PO PRN ×4 (02:25→21:33)
[2020-06-21] MEDS: ONDANSETRON 4 MG/2 ML VIAL IVP PRN ×3 (02:25→21:40)
[2020-06-21] MEDS: SENNOSIDES-DOCUSATE SODIUM 1 EACH TAB PO SCH (07:55)
[2020-06-21] MEDS: APIXABAN 5 MG TAB PO SCH ×2 (07:55→21:28)
[2020-06-21] MEDS: CHOLECALCIFEROL 25 MCG (1000 IU) TABLET PO SCH (07:56)
[2020-06-21] MEDS: lisinopriL 20 MG TAB PO SCH (07:56)
[2020-06-21] MEDS: amLODIPine 10 MG TAB PO SCH (07:56)
[2020-06-21] MEDS: METOPROLOL SUCCINATE (ER) 25 MG TAB.ER.24H PO SCH (07:56)
--- NOTE | 2020-06-21 08:18 | P.PN ---
Progress Note - Text Progress Note Date: 06/21/20 Postoperative day #1 Patient is seen and examined today at bedside. The patient has some pain around the surgical site as expected. Pain is being controlled with medication. He had some nausea last night but that seems to be resolving. He is able to eat a little bit this morning. Physical Exam Afebrile with stable vital signs Abdomen is soft nontender. Chest has good excursion deep and space expiration The incision site is clean dry and intact. No erythema there is no purulence. Extremities have not had neurologic change from prior to surgery. He has sustained dorsal to plantar flexion and EHL intact. Calves and thighs were soft nontender without evidence of DVT. Assessment/Plan Postoperative day #1 status post minimally invasive decompression fusion L4 5 L5-S1 for his severe spinal stenosis with lower extremity radiculopathy and neurogenic claudication. Patient is progressing as expected from the surgery. His nausea seems to be resolving appropriately and we will discontinue his Reyna this morning. We will continue to increase the patient's mobilization with therapy. We will continue pain control with oral or IV medications. We'll continue to follow patient closely. Hopefully he'll be able to be mobile and able to be discharged home in the next 1-2 days.
[2020-06-21] MEDS: ATORVASTATIN 20 MG TAB PO SCH (21:28)
[2020-06-22] MEDS: HYDROcodone/APAP 5-325MG 1 EACH TAB PO PRN ×2 (03:51→09:46)
[2020-06-22] MEDS: SODIUM CHLORIDE 0.9% 1,000 ML IV SCH (04:08)
[2020-06-22] MEDS: LACTATED RINGERS 1,000 ML IV SCH (04:08)
[2020-06-22 05:28] VITALS: BP 120/73; PULSE 85; RESP 16; TEMP 99
[2020-06-22] MEDS: APIXABAN 5 MG TAB PO SCH (08:41)
[2020-06-22] MEDS: amLODIPine 10 MG TAB PO SCH (08:41)
[2020-06-22] MEDS: SENNOSIDES-DOCUSATE SODIUM 1 EACH TAB PO SCH (08:41)
[2020-06-22] MEDS: CHOLECALCIFEROL 25 MCG (1000 IU) TABLET PO SCH (08:41)
[2020-06-22] MEDS: METOPROLOL SUCCINATE (ER) 25 MG TAB.ER.24H PO SCH (08:41)
[2020-06-22] MEDS: ONDANSETRON 4 MG/2 ML VIAL IVP PRN (08:42)
[2020-06-22] MEDS: lisinopriL 20 MG TAB PO SCH (08:42)
--- NOTE | 2020-06-22 09:02 | P.DS ---
Providers Date of admission: 06/20/20 06:22 Expected date of discharge: 06/22/20 Attending physician: Khari Crespo Primary care physician: Rafat Lott - Discharge Diagnosis(es) (1) Lumbar stenosis with neurogenic claudication Current Visit: Yes Status: Acute (2) Lumbar degenerative disc disease Current Visit: Yes Status: Acute (3) Lumbar facet arthropathy Current Visit: Yes Status: Acute (4) Lumbar back pain with radiculopathy affecting lower extremity Current Visit: Yes Status: Acute (5) Hypertension Current Visit: Yes Status: Acute (6) Hyperlipidemia Current Visit: Yes Status: Acute (7) Sleep apnea Current Visit: Yes Status: Acute (8) Atrial fibrillation Current Visit: Yes Status: Acute (9) Obesity (BMI 30.0-34.9) Current Visit: Yes Status: Acute Hospital Course: This is a pleasant 64-year-old male who presented with L4-5 and L5-S1 severe spinal canal stenosis with neurogenic claudication, lumbar facet arthrosis, lumbar degenerative disc disease, and low back pain with lower extremity radiculopathy who failed outpatient conservative therapy. He was admitted for an L4-5 and L5-S1 minimally invasive posterior lateral decompression and fusion with transforaminal lumbar interbody fusion. The patient tolerated the procedure well and did well postoperatively. He did have significant difficulty with mobility yesterday. He states he has had significant improvement this morning. He has been able to play with assistance of a walker. He discontinued Dilaudid due to significant nausea. He continues to have a little bit of nausea with the narcotic medication but states his pain has been fairly well controlled. He is passing gas. He denies any abdominal pain. He states he does have some chronic difficulty with constipation and takes stool softeners in the outpatient setting. He feels that he continues to improve today he feels he could be discharged home. He does have a walker to aid in ambulation at home. Condition on day of discharge stable. Patient will be discharged home. Patient was cleared preoperatively for surgery by Dr. Lott. Patient currently denies any nausea, vomiting, fever, or chills. Patient is eating and voiding freely without difficulty. Patient may shower Optifoam dressing intact. Patient may remove Optifoam dressing in 3 days and shower without a dressing at that time. Patient should refrain from driving until at least after their first follow-up appointment in the office. Patient should avoid excessive bending, lifting, and twisting; no lifting greater than 10 pounds. MAPS has been reviewed today, 06/22/2020, with an Overall Overdose Risk Score of 000. An "Opiod Start Talking" Form has been signed and placed in the patient's chart. A prescription has been written for [place] 5 mg/325 mg 1-2 tabs every 6 hours as needed for pain, dispensed #56. He is also given a prescription for Zofran 4 mg tablets 1 tab every 6 hours as needed for nausea, dispensed #30. Patient may resume other previously prescribed home medications well avoiding anti-inflammatories over the next 6 weeks postoperatively. Patient's other medical diagnoses include hypertension, hyperlipidemia, sleep apnea, obesity, and atrial fibrillation Physical Exam on day of discharge: Patient is awake, alert, and oriented 3 Vital signs stable Good chest excursion with deep inspiration and expiration Abdomen soft nontender No signs or symptoms of DVT; no calf pain Extensor hallucis longus, plantarflexion, and dorsiflexion positive sustained bilateral lower extremities Incisions are clean, dry, and intact; no erythema, purulence, or signs of infection Optifoam dressings remain intact Procedures: L4-5 and L5-S1 minimally invasive posterior lateral decompression and fusion with transforaminal lumbar interbody fusion Patient Condition at Discharge: Stable Plan - Discharge Summary Discharge Rx Participant: Yes New Discharge Prescriptions: New Ondansetron [Zofran] 4 mg PO Q6HR PRN #30 tab PRN Reason: Nausea HYDROcodone/APAP 5-325MG [[place] 5] 1 - 2 each PO Q6HR PRN #56 tab PRN Reason: Pain No Action Apixaban [Eliquis] 5 mg PO BID Cholecalciferol [Vitamin D3 (25 Mcg = 1000 Iu)] 4,000 unit PO DAILY Ubidecarenone [Co Q-10] 200 mg PO HS amLODIPine BESYLATE/BENAZEPRIL [Lotrel 10-40 MG] 1 cap PO QAM Atorvastatin [Lipitor] 20 mg PO HS Metoprolol Succinate [Toprol XL] 25 mg PO QAM Discharge Medication List Apixaban [Eliquis] 5 mg PO BID 12/03/15 [History] Cholecalciferol [Vitamin D3 (25 Mcg = 1000 Iu)] 4,000 unit PO DAILY 12/03/15 [History] Ubidecarenone [Co Q-10] 200 mg PO HS 12/03/15 [History] Atorvastatin [Lipitor] 20 mg PO HS 11/15/18 [History] amLODIPine BESYLATE/BENAZEPRIL [Lotrel 10-40 MG] 1 cap PO QAM 11/15/18 [History] Metoprolol Succinate [Toprol XL] 25 mg PO QAM 06/18/20 [History] HYDROcodone/APAP 5-325MG [[place] 5] 1 - 2 each PO Q6HR PRN #56 tab 06/22/20 [Rx] Ondansetron [Zofran] 4 mg PO Q6HR PRN #30 tab 06/22/20 [Rx] Follow up Appointment(s)/Referral(s): Khari Crespo DO [Doctor of Osteopathic Medicine] - 2 Weeks Activity/Diet/Wound Care/Special Instructions: Keep site clean. May shower with waterproof Tegaderm intact. Do not soak in a tub. Patient may remove dressing in 3 days and then may shower with area uncovered. Leave glue intact and allow it to fray off on its own. May ambulate as tolerated. Avoid heavy or rigorous activity. No repetitive bending twisting or lifting. No overhead work. Take medications as prescribed. Discharge Disposition: HOME SELF-CARE
== END 2020-06-22 13:12 | disposition home or self-care (01) | DRG 454 ==
LOC: 2ORMAIN 06:22 → 5NMEDONC 13:15
PROVIDERS: ADMIT Orthopaedic Surgery Orthopaedic Surgery of the Spine; ATTEND Orthopaedic Surgery Orthopaedic Surgery of the Spine
PROC: 0SG30AJ Fusion of Lumbosacral Joint with Interbody Fusion Device, Posterior Approach, Anterior Column, Open Approach (ICD-10-PCS; 2020-06-20)
PROC: 0SB40ZZ Excision of Lumbosacral Disc, Open Approach (ICD-10-PCS; 2020-06-20)
PROC: 01NB0ZZ Release Lumbar Nerve, Open Approach (ICD-10-PCS; 2020-06-20)
PROC: 0QR Lower Bones, Replacement (ICD-10-PCS; 2020-06-20)
PROC: 07DS0ZZ Extraction of Vertebral Bone Marrow, Open Approach (ICD-10-PCS; 2020-06-20)
PROC: 8E0WXBZ Computer Assisted Procedure of Trunk Region (ICD-10-PCS; 2020-06-20)
PROC: 0SG0071 Fusion of Lumbar Vertebral Joint with Autologous Tissue Substitute, Posterior Approach, Posterior Column, Open Approach (ICD-10-PCS; principal; 2020-06-20 07:30)
DX: M48.062 Spinal stenosis, lumbar region with neurogenic claudication (principal); I48.19 Other persistent atrial fibrillation; M51.16 Intervertebral disc disorders with radiculopathy, lumbar region; M51.17 Intervertebral disc disorders with radiculopathy, lumbosacral region; M47.26 Other spondylosis with radiculopathy, lumbar region; K59.09 Other constipation; M16.0 Bilateral primary osteoarthritis of hip; E66.9 Obesity, unspecified; E78.5 Hyperlipidemia, unspecified; G47.30 Sleep apnea, unspecified; I10 Essential (primary) hypertension; M48.061 Spinal stenosis, lumbar region without neurogenic claudication; Z79.01 Long term (current) use of anticoagulants; Z90.89 Acquired absence of other organs; Z90.49 Acquired absence of other specified parts of digestive tract; Z68.33 Body mass index [BMI] 33.0-33.9, adult; Z82.49 Family history of ischemic heart disease and other diseases of the circulatory system; Z79.899 Other long term (current) drug therapy
CPT/HCPCS: 72100; 86850; 86891; 86900; 86901; 87635

== ENCOUNTER → 2020-12-13 | Outpatient (CLI) | payer MEDICARE ==
--- NOTE | 2020-12-13 12:15 | MR ---
MRI brain without contrast HISTORY: Memory impairment Multiplanar multisequence imaging through the brain No comparisons There is no restricted diffusion. The corpus callosum, pituitary, cervical medullary junction, cerebe llopontine angles are within normal limits. There are expected vascular flow voids. Orbits show symme tric appearance. There is no hemorrhage or hydrocephalus. There are scattered hyperintensities on inv ersion recovery T2-weighted sequences within the periventricular, pericallosal, subcortical white mat ter, approximately 20-30 lesions are present, largest in the left frontal lobe on axial image 20 carla ures 6-7 mm. There are inflammatory changes within the bilateral maxillary sinuses, ethmoid air cells . Cortical atrophy is likely age-related. IMPRESSION: Nonspecific white matter demyelination may be due to chronic small vessel ischemia, age-r elated atrophy. Sinus disease.
== END | disposition home or self-care (01) ==
LOC: RADMRIMAIN 07:32
PROVIDERS: ATTEND Family Medicine
DX: G37.8 Other specified demyelinating diseases of central nervous system (principal); J32.8 Other chronic sinusitis
CPT/HCPCS: 70551

== ENCOUNTER → 2020-12-31 | Outpatient (CLI) | payer MEDICARE | END | disposition home or self-care (01) | LOC: LABWHC1 12:28 | PROVIDERS: ATTEND Psychiatry & Neurology Neurology | DX: M25.50 Pain in unspecified joint (principal); R41.3 Other amnesia | CPT/HCPCS: 36415; 82607; 85652; 86038; 86039 ==

== ENCOUNTER → 2023-02-11 | Outpatient (CLI) | payer MEDICARE ==
[2023-02-11 13:45] LABS: Partial Thromboplastin Time 31.6 sec (22.0-30.0); Prothrombin Time 11.3 sec (10.0-12.5)
[2023-02-11 18:55] LABS: HCT 46.4 % (39.6-50.0); HGB 14.9 g/dL (13.0-17.0); MCH 30.8 pg (27.0-32.0); MCHC 32.1 g/dL (32.0-37.0); MCV 96.1 FL (80.0-97.0); Mean Platelet Volume 11.3 FL (9.5-12.2); NRBC Per 100 WBC 0 X 10*3/uL (0.00-0.01); Platelet Count 151 X 10*3/uL (140-440); RBC 4.83 X 10*6/uL (4.40-5.60); RDW 13.3 % (11.5-14.5); WBC 4.99 X 10*3/uL (4.50-10.00)
[2023-02-11 23:12] LABS: BUN/Creat Ratio 24.22 Ratio (12.00-20.00); Blood Urea Nitrogen 21.8 mg/dL (9.0-27.0); Glucose 107 mg/dL (70-110)
[2023-02-11 23:13] LABS: ALT 30 U/L (10-49); AST 27 U/L (14-35); Albumin 4.4 g/dL (3.8-4.9); Alkaline Phosphatase 75 U/L (41-126); Calcium 9.4 mg/dL (8.7-10.3); Carbon Dioxide 26.5 mmol/L (21.6-31.8); Chloride 104 mmol/L (96-109); Globulin 2.1 g/dL (1.6-3.3); Sodium 142 mmol/L (135-145); Total Bilirubin 1.5 mg/dL (0.3-1.2); Total Protein 6.5 g/dL (6.2-8.2)
== END | disposition home or self-care (01) ==
LOC: LABPAT 11:20
PROVIDERS: ATTEND Orthopaedic Surgery
DX: Z01.818 Encounter for other preprocedural examination (principal); I48.91 Unspecified atrial fibrillation; M16.11 Unilateral primary osteoarthritis, right hip; R94.31 Abnormal electrocardiogram [ECG] [EKG]; Z22.322 Carrier or suspected carrier of Methicillin resistant Staphylococcus aureus
CPT/HCPCS: 80053; 85027; 85610; 85730; 86850; 86900; 86901; 87070; 93005

== ENCOUNTER → 2023-03-04 | Outpatient (CLI) | payer MEDICARE | END | disposition home or self-care (01) | LOC: LABWHC1 15:01 | PROVIDERS: ATTEND Orthopaedic Surgery | DX: M16.11 Unilateral primary osteoarthritis, right hip (principal) | CPT/HCPCS: 36415; 83036 ==

== ENCOUNTER → 2023-04-20 | Outpatient (CLI) | payer MEDICARE | END | disposition home or self-care (01) | LOC: LABPAT 09:48 | PROVIDERS: ATTEND Orthopaedic Surgery | DX: Z01.812 Encounter for preprocedural laboratory examination (principal); Z22.322 Carrier or suspected carrier of Methicillin resistant Staphylococcus aureus; M16.11 Unilateral primary osteoarthritis, right hip | CPT/HCPCS: 36415; 83036; 86850; 86900; 86901 ==

== ENCOUNTER 2023-04-29 10:46 | Day surgery (SDC) | payer MEDICARE ==
[2023-04-23 11:44] VITALS: BMI 30.9
[~2023-04-29 10:46] MED LIST changes: +DEXAMETHASONE SOD PHOSPHATE 10 MG/ML 1 ML VIAL IV PRN; -DEXAMETHASONE SOD PHOSPHATE 4 MG/ML 1 ML VIAL IV ONE; +HYDROmorphone 0.5 MG/0.5 ML SYRINGE IVP PRN; -LIDOCAINE 1% (10MG/ML) FOR IV START INTRADERMA PRN; -MIDAZOLAM 2 MG/2 ML VIAL IV PRN; -ONDANSETRON 4 MG/2 ML VIAL IVP ONE; +ONDANSETRON 4 MG/2 ML VIAL IVP PRN; +TRANEXAMIC 1,000 MG/100ML-NACL 1,000 MG in SALINE 1 100ML.BAG IV PRN; +TRANEXAMIC 1,000 MG/100ML-NACL 1,000 MG in SALINE 1 100ML.BAG IVPB PRN; -ceFAZolin 1,000 MG in SODIUM CHLORIDE 0.9% IRRIGATIO 1,000 ML IRRIGATION PRN
[2023-04-29] MEDS: LACTATED RINGERS 1,000 ML IV SCH (10:55)
[2023-04-29 11:23] LABS: Glucose,Whole Blood 99 mg/dL (70-110)
[2023-04-29] MEDS ORDERED: ACETAMINOPHEN TAB 500 MG TAB ONE (11:24)
[2023-04-29] MEDS ORDERED: ONDANSETRON 4 MG/2 ML VIAL ONE (11:24)
[2023-04-29] MEDS ORDERED: KETOROLAC 15 MG/ML 1 ML VIAL ONE (11:25)
[2023-04-29] MEDS: oxyCODONE ER 10 MG TAB.ER.12H PO PRN (11:38)
[2023-04-29] MEDS: DOCUSATE 100 MG CAP PO PRN (11:38)
[2023-04-29] MEDS: DEXAMETHASONE SOD PHOSPHATE 4 MG/ML 1 ML VIAL IV ONE (11:38)
[2023-04-29] MEDS: FAMOTIDINE 20 MG/2 ML VIAL IVP PRN (11:38)
[2023-04-29] MEDS: KETOROLAC 15 MG/ML 1 ML VIAL IVP PRN (11:38)
[2023-04-29] MEDS: ONDANSETRON 4 MG/2 ML VIAL IVP ONE ×2 (11:38→16:15)
[2023-04-29] MEDS: ACETAMINOPHEN TAB 500 MG TAB PO PRN (11:38)
[2023-04-29] MEDS: fentaNYL (PF) 50 MCG/ML 2 ML AMP IVP ONE (11:44)
[2023-04-29] MEDS: MIDAZOLAM 2 MG/2 ML VIAL IVP ONE (11:44)
--- NOTE | 2023-04-29 12:07 | P.ANPRN ---
Procedure Note - Anesthesia - Nerve Block Performed Right Sergio Single Date of Procedure: 04/29/23 Procedure Start Time: 11:40 Procedure Stop Time: 11:49 Location of Patient: PreOp Indication: Acute Post-Operative Pain, Requested by Surgeon Specifically requested for management of pain by DrNgozi: Miller Edward Sedation Type: Sedate with meaningful contact maintained Preparation: Sterile Prep Position: Supine Needle Gauge: 21 Ultrasound used to visualize needle placement: Yes Ultrasound used to observe medication spread: Yes Injectate: 0.5% Ropivacaine (see comment for volume) Blood Aspirated: No Pain Paresthesia on Injection Noted: No Resistance on Injection: Normal Image Stored and Saved: Yes Events: Uneventful and Well Tolerated (30 cc)
[2023-04-29] MEDS ORDERED: PROPOFOL 10 MG/ML 20 ML VIAL IV ONE (12:14)
[2023-04-29] MEDS ORDERED: MIDAZOLAM 2 MG/2 ML VIAL ONE (12:14)
[2023-04-29] MEDS ORDERED: fentaNYL (PF) 50 MCG/ML 2 ML AMP ONE (12:14)
[2023-04-29] MEDS ORDERED: HYDROmorphone (PF) 1 MG/ML ONE (12:14)
[2023-04-29] MEDS ORDERED: NEOSTIGMINE 1 MG/ML 10 ML VIAL ONE (12:14)
[2023-04-29] MEDS ORDERED: GLYCOPYRROLATE 0.2 MG/ML 2 ML VIAL ONE (12:14)
[2023-04-29] MEDS ORDERED: SUCCINYLCHOLINE CHLORIDE 200 MG/10 ML VIAL IV ONE (12:14)
[2023-04-29] MEDS ORDERED: TRANEXAMIC 1,000 MG/100ML-NACL PREMIX BAG ONE (12:14)
[2023-04-29] MEDS ORDERED: PHENYLEPHRINE-0.9% NACL SYG 1,000 MCG/10 ML SYRINGE ONE (12:14)
[2023-04-29] MEDS ORDERED: WATER FOR INJECTION, STERILE 10 ML VIAL IV ONE (12:14)
[2023-04-29] MEDS ORDERED: ROCURONIUM 10 MG/ML (5 ML VIAL) IV ONE (12:14)
[2023-04-29] MEDS ORDERED: ROPIVACAINE 5 MG/ML 30 ML VIAL ONE (12:14)
[2023-04-29] MEDS ORDERED: LIDOCAINE 1% INJ 10MG/ML (20 ML MDV) ONE (12:14)
[2023-04-29] MEDS ORDERED: ePHEDrine 50 MG/ML 1 ML VIAL ONE (12:14)
[2023-04-29 12:17] LABS: Basophils % (A) 1 %; Eosinophils # (A) 0.1 k/uL (0-0.7); Eosinophils % (A) 3 %; HCT 45.4 % (39.0-53.0); Lymphocytes # (A) 0.8 k/uL (1.0-4.8); Lymphocytes % (A) 16 %; MCH 31.1 pg (25.0-35.0); MCV 94.4 fL (80.0-100.0); Mean Platelet Volume 7.5; Monocytes # (A) 0.4 k/uL (0-1.0); Monocytes % (A) 8 %; Neutrophils # (A) 3.4 k/uL (1.3-7.7); Neutrophils % (A) 70 %; Platelet Count 116 k/uL (150-450); RDW 13.5 % (11.5-15.5); WBC 4.8 k/uL (3.8-10.6)
[2023-04-29] MEDS: ROPIVACAINE/EPI/CLONIDINE/KET 50 ML SYRINGE MISCELLANE PRN (13:08)
[2023-04-29] MEDS: LACTATED RINGERS 1,000 ML IV ONE ×2 (13:09→16:39)
[2023-04-29] MEDS ORDERED: HYDROmorphone 0.5 MG/0.5 ML SYRINGE IVP PRN ×3 (14:27)
[2023-04-29] MEDS ORDERED: MAGNESIUM HYDROXIDE 2,400 MG/30 ML CUP PO PRN (14:27)
[2023-04-29] MEDS ORDERED: NALOXONE 0.4 MG/ML 1 ML VIAL IV PRN (14:27)
[2023-04-29] MEDS ORDERED: HYDROcodone/APAP 7.5-325MG 1 EACH TAB PO PRN (14:29)
--- NOTE | 2023-04-29 14:40 | FL ---
EXAMINATION TYPE: FL guidance operating room DATE OF EXAM: 04/29/2023 HISTORY: Fluoroscopy time Total dose area product (DAP) in uGy*m?, mGy*cm? (or similar): 2.0781 IMPRESSION: 1. Fluoroscopy time.
--- NOTE | 2023-04-29 14:42 | XR ---
EXAMINATION TYPE: XR Hip Complete RT DATE OF EXAM: 04/29/2023 COMPARISON: NONE HISTORY: Right anterior hip replacement TECHNIQUE: 10 view submitted. FINDINGS: There is surgical change compatible hip replacement surgery. IMPRESSION: 1. Stable.
--- NOTE | 2023-04-29 14:45 | P.OP ---
Date of Procedure: 04/29/23 Preoperative Diagnosis: 1. right hip osteoarthritis 2. Prior instrumented lumbar spine fusion Postoperative Diagnosis: same Procedure(s) Performed: right direct anterior total hip arthroplasty Implants: 1. [place] Trident II Acetabular Cup, Size #54 2. [place] Insignia Size # 5 Femoral Stem, High Offset 3. Dual Mobility OD 42 mm, ID 28 mm, -4 mm neck Anesthesia: MINA, regional Surgeon: Miller Edward Bicycle Rental Clerk #1: Sarah Hood Estimated Blood Loss (ml): 300 IV fluids (ml): 900 Pathology: none sent Condition: stable Disposition: PACU Indications for Procedure: I had a long discussion with the patient in the office on the potential risks and complications of an elective total hip replacement through a direct anterior approach. Risks discussed include, but are certainly not limited to, risks from anesthesia, superficial infection requiring local wound care or antibiotics, deep marissa-prosthetic joint infection and the treatment required to eradicate infection, intraoperative fracture, postoperative periprosthetic fracture, damage to local blood vessels or nerves particularly the lateral femoral cutaneous nerve, delayed wound healing requiring local wound care or possibly surgical debridement, hip dislocation, leg length discrepancy, soft tissue irritation around the total hip implant such as iliopsoas tendinitis or trochanteric bursitis, wear and osteolysis from the implants, squeaking or audible noises, groin pain, thigh pain, heterotopic ossification, stiffness, aseptic loosening of the implants, dissatisfaction with surgical outcome, need for revision surgery, DVT, PE, swelling of the operative extremity, acute coronary event, stroke, failure to thrive, and possibly loss of life or limb. The patient understands that while these are the most common complications after an elective hip replacement there are certainly other less common complications possible. They were given ample time to ask questions regarding the potential complications of a hip replacement. Following our discussion the patient provided their verbal and written consent to go forward with an elective total hip replacement. Operative Findings: severe right hip osteoarthritis Description of Procedure: The patient was identified in the preoperative holding area and the correct hip was marked with my initials. I reviewed the procedure and consent with the patient. All of their questions were answered. The patient was then brought back into the operating room by anesthesia. While on the [facility] anesthesia was administered by the anesthesia team. Preoperative antibiotics and tranexamic acid were also given. After the patient was under anesthesia I examined their ankles to determine their preoperative leg length discrepancy. The skin over the anterior aspect of the hip was shaved to remove hair over the site of planned incision. Both feet and ankles were padded with webril and boots for the [place] were applied. The patient was then carefully transferred onto the [place] table. A perineal post was immediately placed. The arms were placed on arm holders and were well-padded. Both boots were secured to the spars on the [place] table. The patient was positioned so that the pelvis was centered over the post. Nonsterile drapes were applied. A timeout was performed identifying the correct patient, operative extremity, and procedure. At this point fluoroscopy was brought in to take preoperative images of the pelvis and operative hip. Using the standing AP pelvis from the office as a template, a comparable image was obtained with fluoroscopy. A metallic bar was used to create a bi-ischial line for use as a reference to leg length adjustments during the procedure. Global offset was also measured on both the operative and nonoperative leg. Fluoroscopy was then brought out and a pre-scrub using a chlorhexidine scrub brush was performed. The operative limb was then prepped and draped in the standard sterile fashion. An anterior longitudinal incision was made lateral and distal to the ASIS. The skin and subcutaneous tissues were incised sharply. The underlying tensor fascia was identified and incised in its midportion. The fascia was dissected free from the underlying muscle and the muscle belly was retracted. A blunt tipped cobra retractor was placed over the superior neck under the muscle fibers of the gluteus minimus. The deep enveloping fascia of the tensor was incised. The anterior leash of vessels were then identified and cauterized. The fascia between the rectus and the capsule was then incised and the pre-capsular fat was excised. A second Cobra was placed inferior to the neck. The interval between the rectus and iliocapsularis and the hip capsule was developed and a retractor was placed carefully over the anterior rim of the acetabulum. A T-shaped anterior capsulotomy was performed. The superior capsular leaflet was left in place in the inferior capsular flap was excised. The Cobra retractors were placed intracapsularly. We then made a femoral neck osteotomy according to preoperative and intraoperative templating and confirmed the level of the osteotomy using fluoroscopic imaging. The femoral head was removed, passed off to the back table, and sized. The superior capsular flap was excised. Retractors were placed circumferentially exposing the acetabulum. We then circumferentially debrided the acetabulum free of labrum and osteophytes. The pulvinar was removed to fully visualize the cotyloid fossa. We then sequentially reamed to achieve peripheral fit and excellent bleeding subchondral bone. The socket was thoroughly irrigated. The acetabular component was impacted into the appropriate position using fluoroscopy to guide version, inclination, and depth of insertion taking care to have a comparable image of the AP pelvis to the standing image taken in the office. An excellent press-fit was achieved and final position was confirmed using fluoroscopy. The press fit was augmented with bony cancellus dome screws. The liner was then impacted into the socket. Attention was then turned to the femur. The remnant dorsal lateral capsule was excised. The short external rotators were visible and protected. A bone hook was used to confirm appropriate translation of the trochanter away from the acetabulum. The leg was then extended and adducted and the bone hook was used to elevate the femur for broaching. A box osteotome and blunt tipped canal sound was then utilized to gain access to the femoral canal. We then sequentially broached the femur in appropriate anteversion until excellent torsional stability was achieved. The neck cut was brought flush to the trial broach with a calcar planar. A trial neck and head were then placed onto the broach and the hip was atraumatically reduced under direct visualization. External rotation to 90 was performed to assess stability. Fluoroscopy was brought in. An AP and lateral fluoroscopic image of the proximal femur was obtained to assess position and fill of the trial broach. An AP of the pelvis was then obtained and matched to the preoperative image taken. A bi-ischial bar was then placed and measurements were taken to assess changes in length and offset. The hip was then carefully dislocated, the proximal femur was exposed, and the trial implants were removed. The wound and proximal femur was thoroughly irrigated using sterile saline and pulsatile lavage. The final femoral implant was dispensed and gently tapped into place generating an excellent press-fit. The trunnion was cleansed and the final head was tapped into place to engage the Simental taper. The acetabulum was irrigated and visualized to be free of debris. The hip was carefully reduced. Stability was checked clinically with external rotation to 90 and there was no evidence of instability. Final fluoroscopic images were taken. The wound was then thoroughly irrigated and soaked with a dilute Betadine rinse for 3 minutes. 3 L of sterile saline was irrigated through the wound using pulsatile lavage. Local anesthetic cocktail was injected into the soft tissues around the surgical field. The wound was then closed in layers. A sterile dressing was placed over the surgical incision. The drapes were taken down and the patient was carefully transferred off of the [place] table. Following removal of the boots the leg lengths felt acceptable. The patient was then taken to recovery room having tolerated the procedure well. Sarah Hood PA-C was required as a skilled medical assistant instructor due to the complexity of the surgery for patient positioning, draping, retraction, closure of wound, application of dressing, and transfer of patient. PLAN: The patient can weight-bear as tolerated on the operative extremity. DVT prophylaxis with aspirin 81 mg twice a day based on preoperative risk stratification. Physical therapy for gait training. Leave surgical dressing in place. Internal medicine for perioperative medical management.
[2023-04-29 14:59] LABS: Glucose,Whole Blood 159 mg/dL (70-110)
[2023-04-29] MEDS: SODIUM CHLORIDE 0.9% 1,000 ML IV SCH (19:35)
[2023-04-29] MEDS: SENNOSIDES-DOCUSATE SODIUM 1 EACH TAB PO SCH (20:59)
[2023-04-29] MEDS: ONDANSETRON 4 MG/2 ML VIAL IVP PRN (21:39)
[2023-04-30] MEDS ORDERED: DEXTROSE 50% SYRINGE 50 ML IVP PRN ×2 (02:28)
--- NOTE | 2023-04-30 02:32 | P.CONS ---
History of Present Illness - Reason for Consult Consult date: 04/29/23 Postoperative medical management - Chief Complaint Right total hip arthroplasty - History of Present Illness 67-year-old male with A-fib on blood thinners diabetes mellitus Patient coming in for scheduled right hip total arthroplasty due to severe arthritis resulting in disabling pain affecting his ADLs patient tolerated procedure well no observed immediate postoperative complications denies any chest pain trouble breathing denies any abdominal pain fevers chills. Patient had an episode of emesis nonbloody nonbilious after he attempted to eat however currently he feels better. Patient has not attempted to ambulate yet patient has not passed urine yet Patient denies tobacco smoking illicit drugs or heavy alcohol Patient feels comfortable at this time and ready to sleep he is currently wearing his CPAP review of systems Pertinent positives as noted in HPI. All other systems were reviewed and are negative on exam Constitutional: No acute distress, conversant, pleasant Eyes: Anicteric sclerae, moist conjunctiva, Pupils equal round reactive to light ENMT: NC/AT Oropharynx clear, no erythema, or exudates Neck: Supple, no masses, or JVD No carotid bruits No thyromegaly Lungs: Clear to auscultation Clear to percussion Normal respiratory effort, no accessory muscle use Cardiovascular: Heart regular in rate and rhythm, No murmurs, gallops, or rubs No peripheral edema Abdominal: Soft Nontender, no guarding, rebound or rigidity Abdomen moving with respiration Normoactive bowel sounds Extremities: No digital cyanosis No clubbing Pedal pulses intact and symmetrical Radial pulses intact and symmetrical No calf tenderness Psychiatric: Alert and oriented to person, place and time Appropriate affect fair judgement Neuro Muscles Strength 5/5 in all 4 extremities with limited exam over ri ght lower extremity due to surgery Sensation to light touch grossly present throughout Cranial nerves II-XII grossly intact Past Medical History Past Medical History: Atrial Fibrillation, Blood Disorder, Diabetes Mellitus, Hyperlipidemia, Hypertension, Sleep Apnea/CPAP/BIPAP Additional Past Medical History / Comment(s): uses CPAP, antithrombin 3 clotting disorder History of Any Multi-Drug Resistant Organisms: None Reported Past Surgical History: Appendectomy, Cardiac Ablation Additional Past Surgical History / Comment(s): cardioversion x 3, meniscus repair with ACL damage resulting in chronic knee pain. Past Anesthesia/Blood Transfusion Reactions: No Reported Reaction Past Psychological History: No Psychological Hx Reported Smoking Status: Never smoker Past Alcohol Use History: Rare Past Drug Use History: None Reported - Past Family History Father Family Medical History: No Reported History Mother Family Medical History: COPD Sister(s) Family Medical History: Cancer Medications and Allergies Home Medications Medication Instructions Recorded Confirmed Type Apixaban [Eliquis] 5 mg PO BID 12/03/15 04/29/23 History Cholecalciferol [Vitamin D3 (25 4,000 unit PO DAILY 12/03/15 04/29/23 History Mcg = 1000 Iu)] amLODIPine BESYLATE/BENAZEPRIL 1 cap PO QAM 11/15/18 04/29/23 History [Lotrel 10-40 MG] Atorvastatin [Lipitor] 40 mg PO HS 02/13/23 04/29/23 History metFORMIN HCL [Glucophage] 500 mg PO DAILY 02/13/23 04/29/23 History hydroCHLOROthiazide 12.5 mg PO DAILY 04/23/23 04/29/23 History HYDROcodone/APAP 7.5-325MG [[place] 1 - 2 tab PO Q6H PRN #32 tab 04/29/23 Rx 7.5-325] Sennosides [Senokot] 2 tab PO DAILY PRN #60 tablet 04/29/23 Rx Allergies Allergy/AdvReac Type Severity Reaction Status Date / Time No Known Allergies Allergy Verified 04/29/23 11:09 Physical Exam Vitals: Vital Signs Temp Pulse Resp BP Pulse Ox 04/29/23 19:09 97.4 F L 78 15 111/73 99 04/29/23 18:30 86 102/66 93 L 04/29/23 18:00 67 98/63 04/29/23 17:45 74 103/65 96 04/29/23 17:30 84 106/66 04/29/23 17:15 85 106/64 98 04/29/23 17:00 86 113/72 96 04/29/23 16:45 97.6 F 80 108/71 94 L 04/29/23 16:30 69 14 105/58 99 04/29/23 16:00 62 15 96/54 99 04/29/23 15:45 78 16 101/57 97 04/29/23 15:30 76 14 100/56 95 04/29/23 15:15 68 19 102/68 92 L 04/29/23 15:00 78 17 96/57 04/29/23 14:43 72 16 116/61 04/29/23 14:28 98.5 F 80 10 L 130/82 04/29/23 11:51 75 16 116/75 98 04/29/23 11:14 98.2 F 77 16 135/81 97 Intake and Output 04/29/23 04/29/23 04/30/23 14:59 22:59 06:59 Intake Total 2049 Output Total 300 Balance 1749 Intake: IV 2049 Output: Estimated Blood Loss 300 Other: Weight 94.3 kg 94.3 kg Results CBC & Chem 7: 04/29/23 12:09 Labs: Abnormal Lab Results - Last 24 Hours (Table) 04/29/23 04/29/23 Range/Units 12:09 14:58 Plt Count 116 L (150-450) k/uL Lymphocytes # 0.8 L (1.0-4.8) k/uL POC Glucose (mg/dL) 159 H (70-110) mg/dL Assessment and Plan Assessment: Right total hip arthroplasty postoperative day 0 Pain control DVT prophylaxis per orthopedic team A-fib rate controlled continue with Eliquis 5 mg p.o. twice daily Hypertension, controlled Continue with LoTrel Obstructive sleep apnea patient encouraged to use his CPAP at night Diabetes mellitus Insulin sliding scale Hold metformin, resume upon discharge Check CBC BMP in the morning Stable from medical standpoint at this time Thank you for this consultation
[2023-04-30 05:49] LABS: Glucose,Whole Blood 150 mg/dL (70-110)
[2023-04-30] MEDS: INSULIN ASPART (NovoLOG) 100 UNIT/ML VIAL SQ SCH (06:01)
[2023-04-30] MEDS: HYDROcodone/APAP 7.5-325MG 1 EACH TAB PO PRN (06:25)
--- NOTE | 2023-04-30 07:58 | P.DS ---
Providers Attending physician: Miller Edward Consults: 04/29/23 14:27 Consult Physician Routine Consulting Provider: Nicole Irwin Consult Reason/Comments: medical management Do you want consulting provider notified?: Yes Primary care physician: Rafat Lott [facility] Course: The patient is a very pleasant 67 old male who was admitted under my care yesterday and underwent uncomplicated total hip replacement. Surgery is t ransferred to the orthopedic floor. He received 2 doses postoperative antibiotics. He was started on DVT prophylaxis the morning after surgery. Internal medicine was consulted. He worked with physical therapy. On postoperative day #1 he was doing well. His dressing over the right hip is intact. Femoral and sciatic nerve function were intact. He was ultimately cleared for discharge home. Plan - Discharge Summary Discharge Rx Participant: No New Discharge Prescriptions: New HYDROcodone/APAP 7.5-325MG [[place] 7.5-325] 1 - 2 tab PO Q6H PRN #32 tab PRN Reason: Pain Omeprazole 40 mg PO DAILY #30 cap Sennosides [Senokot] 2 tab PO DAILY PRN #60 tablet PRN Reason: Constipation Apixaban [Eliquis] 2.5 mg PO BID 30 Days #60 tab No Action Apixaban [Eliquis] 5 mg PO BID Cholecalciferol [Vitamin D3 (25 Mcg = 1000 Iu)] 4,000 unit PO DAILY amLODIPine BESYLATE/BENAZEPRIL [Lotrel 10-40 MG] 1 cap PO QAM Atorvastatin [Lipitor] 40 mg PO HS hydroCHLOROthiazide 12.5 mg PO DAILY metFORMIN HCL [Glucophage] 500 mg PO DAILY Discharge Medication List Apixaban [Eliquis] 5 mg PO BID 12/03/15 [History] Cholecalciferol [Vitamin D3 (25 Mcg = 1000 Iu)] 4,000 unit PO DAILY 12/03/15 [History] amLODIPine BESYLATE/BENAZEPRIL [Lotrel 10-40 MG] 1 cap PO QAM 11/15/18 [History] Atorvastatin [Lipitor] 40 mg PO HS 02/13/23 [History] metFORMIN HCL [Glucophage] 500 mg PO DAILY 02/13/23 [History] hydroCHLOROthiazide 12.5 mg PO DAILY 04/23/23 [History] HYDROcodone/APAP 7.5-325MG [[place] 7.5-325] 1 - 2 tab PO Q6H PRN #32 tab 04/29/23 [Rx] Sennosides [Senokot] 2 tab PO DAILY PRN #60 tablet 04/29/23 [Rx] Apixaban [Eliquis] 2.5 mg PO BID 30 Days #60 tab 04/30/23 [Rx] Omeprazole 40 mg PO DAILY #30 cap 04/30/23 [Rx] Follow up Appointment(s)/Referral(s): Miller Edward MD [Medical Doctor] - 2 Weeks Activity/Diet/Wound Care/Special Instructions: 1. Weight-bear as tolerated on your operative extremity unless instructed otherwise. Use a walker or other assistive device to ambulate. 2. Leave surgical dressing in place. If your dressing becomes saturated with blood, there is drainage, or the dressing becomes loose please contact the office. 3. It is okay to shower with your surgical dressing, but do not submerge in water (no hot tubs, bath's, swimming etc.) 4. Make sure to take her blood clot prevention medication as prescribed - Resume your home dose of Eliquis. 5. While taking [place] or Percocet for pain make sure you're taking a stool softener (Colace) and drink lots of water. 6. Keep all follow-up appointments as scheduled. You will usually be seen in 1-2 weeks following surgery. 7. Please contact the office with any questions or concerns [phone] Discharge Disposition: HOME WITH HOME HEALTH SERVICES
[2023-04-30 08:32] VITALS: BP 108/71; PULSE 79; RESP 17; TEMP 98.4
[2023-04-30] MEDS: lisinopriL 20 MG TAB PO SCH (09:10)
[2023-04-30] MEDS: APIXABAN 5 MG TAB PO SCH (09:10)
[2023-04-30] MEDS: amLODIPine 10 MG TAB PO SCH (09:11)
[2023-04-30 11:16] LABS: Basophils # (A) 0.03 X 10*3/uL (0.00-0.10); Basophils % (A) 0.2 %; Eosinophils # (A) 0.03 X 10*3/uL (0.04-0.35); Eosinophils % (A) 0.2 %; HCT 38.7 % (39.6-50.0); HGB 12.9 g/dL (13.0-17.0); Lymphocytes # (A) 0.67 X 10*3/uL (0.90-5.00); Lymphocytes % (A) 5.3 %; MCH 32.1 pg (27.0-32.0); MCHC 33.3 g/dL (32.0-37.0); MCV 96.3 FL (80.0-97.0); Mean Platelet Volume 10.3 FL (9.5-12.2); Monocytes # (A) 0.92 X 10*3/uL (0.20-1.00); Monocytes % (A) 7.2 %; NRBC Per 100 WBC 0 X 10*3/uL (0.00-0.01); Neutrophils # (A) 11.01 X 10*3/uL (1.80-7.70); Neutrophils % (A) 86.7 %; Platelet Count 118 X 10*3/uL (140-440); RBC 4.02 X 10*6/uL (4.40-5.60); RDW 13.3 % (11.5-14.5); WBC 12.71 X 10*3/uL (4.50-10.00)
[2023-04-30 11:38] LABS: BUN/Creat Ratio 24.44 Ratio (12.00-20.00); Calcium 8.2 mg/dL (8.7-10.3); Chloride 104 mmol/L (96-109); Glucose 143 mg/dL (70-110); Potassium 4.2 mmol/L (3.5-5.5); Sodium 140 mmol/L (135-145)
--- NOTE | 2023-04-30 17:28 | P.PN ---
Subjective Progress Note Date: 04/30/23 (delayed charting seen at 1030) Patient seen and examined at bedside. Pain is well-controlled. No chest pain. No shortness of breath. Doing well no complaints currently. Vital signs reviewed General: Nontoxic, no distress, appears at stated age Cardiovascular: S1S2 reg, no murmur Lungs: CTA bilateral, no rhonchi, no rales, no accessory muscle use Ext: No gross muscle atrophy, no edema b/l lower extremities, no contractures Psych: Alert, oriented, appropriate affect Assessment/Plan: 67-year-old male status post right total hip arthroplasty. A-fib rate controlled - Eliquis 5 mg p.o. twice daily Thrombocytopenia, prestanding surgical procedure -Repeat platelets 116. No further monitoring necessary. Hypertension, controlled - Lotrel, HCTZ in D/C Obstructive sleep apnea -CPAP at night Diabetes mellitus -Insulin sliding scale -resume metformin on discharge Data Review: Labs reviewed from today include CBC and basic metabolic profile which are remarkable for white blood cell count 12.71, reflective of reactive leukocytosis, hemoglobin 12.9, platelets 118 with baseline 116 Patient medically optimized for discharge. Home med rec addressed. Patient instructed to take metformin once he gets home today. Thank you for allowing us to participate in the care of this pleasant patient. Do not hesitate to contact us with questions. Someone can be reached from the [facility] hospitalist group all hours of the day at [phone] or via [employer]. This dictation was prepared using [employer] voice recognition software. Though every attempt is made to correct errors during dictation some may still exist. Objective - Vital Signs Vital signs: Vital Signs Temp 98.4 F 04/30/23 07:11 Pulse 79 04/30/23 08:00 Resp 17 04/30/23 08:00 BP 108/71 04/30/23 07:11 Pulse Ox 96 04/30/23 07:11 FiO2 Intake & Output 04/29/23 04/30/23 04/30/23 18:59 06:59 18:59 Intake Total 2049 Output Total 300 400 Balance 1750 -400 Weight 94.3 kg Intake: IV 2049 Output: Urine 400 Estimated Blood Loss 300 - Labs CBC & Chem 7: 04/30/23 06:41 04/30/23 06:41 Labs: Abnormal Lab Results - Last 24 Hours (Table) 04/30/23 04/30/23 04/30/23 Range/Units 05:47 06:41 06:41 WBC 12.71 H (4.50-10.00) X 10*3/uL RBC 4.02 L (4.40-5.60) X 10*6/uL Hgb 12.9 L (13.0-17.0) g/dL Hct 38.7 L (39.6-50.0) % MCH 32.1 H (27.0-32.0) pg Plt Count 118 L (140-440) X 10*3/uL Immature Gran # 0.05 H (0.00-0.04) X 10*3/uL Neutrophils # 11.01 H (1.80-7.70) X 10*3/uL Lymphocytes # 0.67 L (0.90-5.00) X 10*3/uL Eosinophils # 0.03 L (0.04-0.35) X 10*3/uL BUN/Creatinine Ratio 24.44 H (12.00-20.00) Ratio Glucose 143 H (70-110) mg/dL POC Glucose (mg/dL) 150 H (70-110) mg/dL Calcium 8.2 L (8.7-10.3) mg/dL
[2023-04-30] MEDS ORDERED: ATORVASTATIN 40 MG TAB PO SCH (21:00)
== END 2023-04-30 12:45 | disposition home health service (06) ==
LOC: OR 10:46 → 4SSUR 14:19 → OR 04-30 12:45
PROVIDERS: ATTEND Orthopaedic Surgery
DX: M16.11 Unilateral primary osteoarthritis, right hip (principal); G89.18 Other acute postprocedural pain; I10 Essential (primary) hypertension; E78.5 Hyperlipidemia, unspecified; F32.A Depression, unspecified; F10.90 Alcohol use, unspecified, uncomplicated; Z90.49 Acquired absence of other specified parts of digestive tract; Z90.89 Acquired absence of other organs; Z79.899 Other long term (current) drug therapy; Z98.1 Arthrodesis status; Z79.01 Long term (current) use of anticoagulants
CPT/HCPCS: 97161; 97166; 64447; 80048; 85025 ×2; 73502; 27130; C1776; J2250; J1100; J0690 ×2; J2405; J3010; J3490; J1885

== ENCOUNTER → 2024-02-17 | Outpatient (CLI) | payer MEDICARE ==
--- NOTE | 2024-02-17 10:41 | US ---
EXAMINATION TYPE: US arterial LE single level DATE OF EXAM: 02/17/2024 10:11 AM COMPARISONS: None. CLINICAL INDICATION: Male, 68 years old with history of I73.9 PERIPHERAL VASCULAR DISEASE, UNSPECIFIE D; numbness within legs for a couple years TECHNIQUE: Systolic pressures were taken of the upper and lower extremity arteries with ankle-brachia l indices and toe brachial indices calculated bilaterally. History of: Smoker: n Hypertension: y Diabetic: y Hyperlipidemia: y TIA/CVA: TIA Previous Vascular Surgery: n CAD: n NE: n Vascular Ulcers: n Claudication: n Gangrene: n FINDINGS: Doppler Waveforms: Right: Multiphasic Left: Multiphasic Brachial Artery systolic pressure: Right: 133 Left: 133 Posterior Tibial artery systolic pressure: Right: 168 Left: 172 Dorsalis Pedis artery systolic pressure: Right: 148 Left: 154 Toe artery systolic pressure: Right: 114 Left: 118 Ankle-Brachial Indices: Right: 1.3 Left: 1.3 Toe Brachial Indices: Right: 0.9 Left: 0.9 (Normal > 0.6; Mild 0.35 - 0.59, Moderate 0.12 - 0.34, Severe <0.12) IMPRESSION: LIZ: Right: Normal 0.9 - 1.4, Recommendation: None Left: Normal 0.9 - 1.4, Recommendation: None [facility], , 02/17/2024 10:39 AM
== END | disposition home or self-care (01) ==
LOC: RADUSWWP 09:37
PROVIDERS: ATTEND Family Medicine
DX: I73.9 Peripheral vascular disease, unspecified (principal); E11.51 Type 2 diabetes mellitus with diabetic peripheral angiopathy without gangrene; E78.5 Hyperlipidemia, unspecified; I10 Essential (primary) hypertension; I25.10 Atherosclerotic heart disease of native coronary artery without angina pectoris; Z86.73 Personal history of transient ischemic attack (TIA), and cerebral infarction without residual deficits; Z87.891 Personal history of nicotine dependence
CPT/HCPCS: 93922

== ENCOUNTER 2024-08-26 12:59 | Day surgery (SDC) | payer MEDICARE ==
[~2024-08-26 12:59] MED LIST changes: -DEXAMETHASONE SOD PHOSPHATE 10 MG/ML 1 ML VIAL IV PRN; -HYDROmorphone 0.5 MG/0.5 ML SYRINGE IVP PRN; +LIDOCAINE 1% (10MG/ML) FOR IV START INTRADERMA PRN; -ONDANSETRON 4 MG/2 ML VIAL IVP PRN; -TRANEXAMIC 1,000 MG/100ML-NACL 1,000 MG in SALINE 1 100ML.BAG IV PRN; -TRANEXAMIC 1,000 MG/100ML-NACL 1,000 MG in SALINE 1 100ML.BAG IVPB PRN
[2024-08-26] MEDS: IV FLUID CONTINUATION 1,000 ML IV ONE (14:03)
[2024-08-26] MEDS: LACTATED RINGERS 1,000 ML IV SCH (14:11)
[2024-08-26 14:15] VITALS: TEMP 97.3
[2024-08-26 14:26] LABS: Glucose,Whole Blood 93 mg/dL (70-110)
[2024-08-26] MEDS ORDERED: PROPOFOL 10 MG/ML 20 ML VIAL IV ONE (15:35)
[2024-08-26] MEDS ORDERED: LIDOCAINE 2% (PF) 20 MG/ML 5 ML VIAL ONE (15:35)
--- NOTE | 2024-08-26 15:53 | P.PCN ---
Date of Procedure: 08/26/24 Procedure(s) Performed: BRIEF HISTORY: Patient is a 68-year-old pleasant white male scheduled for an elective colonoscopy as a part of screening for history of colon polyps. Last colonoscopy was 5 years ago . e PROCEDURE PERFORMED: Colonoscopy with biopsy and snare polypectomy PREOPERATIVE DIAGNOSIS: Screening for history of colon polyps. IV sedation per Anesthesia. PROCEDURE: After informed consent was obtained, the patient, was brought into the endoscopy unit. IV sedation was administered by Anesthesia under continuous monitoring. Digital rectal examination was normal. Initially the Olympus CF-160 flexible video colonoscope was then inserted in the rectum, gradually advanced into the cecum without any difficulty. Careful examination was performed as the scope was gradually being withdrawn. Ileocecal valve and the appendiceal orifice were visualized and appeared normal. Prep was excellent. Mucosa of the cecum, appeared normal. The ascending colon there was a 3 mm polyp removed by cold biopsy. Rest of the ascending colon, transverse colon, descending colon appeared normal. The sigmoid colon there was another 3 mm polyp removed by cold biopsy. In the proximal rectum there was a 8 mm polyp removed by cold snare polypectomy. Retroflexion was performed in the rectum and no lesions were seen. The patient tolerated the procedure well. IMPRESSION: 3 mm ascending colon polyp status post cold biopsy 3 mm sigmoid colon polyp status post cold biopsy 8 mm proximal rectal polyp status post cold snare polypectomy RECOMMENDATIONS: Findings of this examination were discussed with the patient as well as his family. He was advised to follow-up with the biopsy results. If the biopsy reveals adenoma recommend repeat colonoscopy in 3 years.
[2024-08-26 15:59] VITALS: RESP 14
[2024-08-26 16:15] VITALS: BP 118/77; PULSE 78
== END 2024-08-26 16:50 | disposition home or self-care (01) ==
LOC: ORWHC2ENDO 12:59
PROVIDERS: ATTEND Internal Medicine Gastroenterology
DX: Z12.11 Encounter for screening for malignant neoplasm of colon (principal); D12.2 Benign neoplasm of ascending colon; D12.5 Benign neoplasm of sigmoid colon; D12.8 Benign neoplasm of rectum; I10 Essential (primary) hypertension; E78.5 Hyperlipidemia, unspecified; I48.91 Unspecified atrial fibrillation; G47.33 Obstructive sleep apnea (adult) (pediatric); Z99.89 Dependence on other enabling machines and devices; Z86.0100 Personal history of colon polyps, unspecified; Z79.01 Long term (current) use of anticoagulants; Z79.899 Other long term (current) drug therapy; Z86.73 Personal history of transient ischemic attack (TIA), and cerebral infarction without residual deficits
CPT/HCPCS: 88305; 45380; 45385; J2704; J2003